=== PATIENT | female | born 1940 | race Caucasian/White ===

== ENCOUNTER 2017-04-01 12:06 | Emergency (ER) | payer OTHER ==
[2017-04-01 12:17] VITALS: RESP 18
[2017-04-01] MEDS ORDERED: RANITIDINE 50 MG/2 ML VIAL IVP ONE (13:07)
[2017-04-01] MEDS ORDERED: NS 500 ML IV ONE (13:07)
[2017-04-01] MEDS ORDERED: DEXAMETHASONE 10 MG/ML VIAL IVP ONE (13:08)
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
--- NOTE | 2017-04-01 13:21 | CPEKG ---
Heart Rate: 57 RR Interval: 1053 P-R Interval: 176 QRSD Interval: 88 QT Interval: 452 QTC Interval: 440 P [place]: 1 QRS [place]: 17 T Wave [place]: 17 EKG Severity - BORDERLINE ECG - EKG Impression: SINUS RHYTHM EKG Impression: BORDERLINE T ABNORMALITIES, ANTERIOR LEADS Electronically Signed By: David Boles 01-Apr-2017 13:44:31
[2017-04-01 13:29] LABS: % IMMATURE GRANULYOCYTES 0.2 % (0.0-1.1); ABSOLUTE IMMATURE GRANULOCYTES 0.01 10^3/uL (0.00-0.10); ADD DIFF? NO; ADD MORPH? NO; ADD SCAN? NO; ATYPICAL LYMPHOCYTE FLAG 40 (0-99); FRAGMENT RBC FLAG 0 (0-99); HEMATOCRIT 36.4 % (38.0-47.0); HEMOGLOBIN 12.4 g/dL (12.6-16.3); LEFT SHIFT FLG 0 (0-99); LIPEMIA HEMOLYSIS FLAG 90 (0-99); MEAN CELL HEMOGLOBIN CONCENTR. 34.1 g/dL (32.4-36.7); MEAN CELL VOLUME 99.7 fL (81.5-99.8); PLATELET CLUMPS FLAG 10 (0-99); PLATELET COUNT 102 10^3/uL (150-400); RED BLOOD CELL COUNT 3.65 10^6/uL (4.18-5.33); RED CELL DISTRIBUTION WIDTH 14.7 % (11.5-15.2)
[2017-04-01 14:02] LABS: ANION GAP 10 mEq/L (8-16); CALCIUM 9.1 mg/dL (8.5-10.4); CARBON DIOXIDE 24 mEq/l (22-31); CHLORIDE 100 mEq/L (97-110); CREATININE 0.8 mg/dL (0.6-1.0); GLOMERULAR FILTRATION RATE > 60; GLUCOSE 80 mg/dL (70-100); POTASSIUM 4.6 mEq/L (3.5-5.2); SODIUM 134 mEq/L (134-144)
[2017-04-01] MEDS ORDERED: IOPAMIDOL (ISOVUE-300) 100 ML BTL ONE (14:09)
[2017-04-01 14:53] VITALS: BP 150/88; PULSE 75; TEMP 98.2; O2SAT 91
== END 2017-04-01 16:02 | disposition home or self-care (01) ==
DX: R09.89 Other specified symptoms and signs involving the circulatory and respiratory systems (principal); E86.9 Volume depletion, unspecified
CPT/HCPCS: 70491; 93005; 96361; 96374; 99285; J1100; J1200; J2780; Q9967; 82947-QW

== ENCOUNTER 2017-05-30 18:11 | Inpatient (IN) | payer OTHER ==
[2017-05-30] MEDS ORDERED: fentaNYL 100 MCG/2 ML INJ ONE ×2 (18:44→19:57)
[2017-05-30] MEDS ORDERED: fentaNYL 100 MCG/2 ML INJ IVP ONE (18:50)
--- NOTE | 2017-05-30 18:55 | EDPHY ---
H & P Time Seen by Provider: 05/30/17 18:37 HPI/ROS: HPI Right ankle injury. 76-year-old female by private vehicle with her . This patient reports that she was wearing a pair of pole slippers which slipped on the top of her stairs. She fell with her feet going out in front of her landing on her right ankle awkwardly and pulling her left shoulder on the banister. She did not hit her head. She denies any loss of consciousness. No neck pain. She is not on anticoagulants or antiplatelet medications. She complains of primarily right ankle pain and to a lesser extent left shoulder pain. No other injury or complaint. ROS: Constitutional: No fever, no chills. No weakness. Eyes: No discharge. No changes in vision. ENT: No sore throat. No nasal congestion or rhinorrhea. Respiratory: No cough. No shortness of breath. Cardiac: No chest pain, no palpitations. Gastrointestinal: No abdominal pain, no vomiting, no diarrhea. Genitourinary: No hematuria. No dysuria or increased frequency with urination. Musculoskeletal: No back pain. No neck pain. As above. Skin: No rashes. Neurological: No headache. No focal weakness or altered sensation. Past medical history: GERD, osteoporosis, hypertension. Social history: Nonsmoker. No alcohol. Here with her . Physical Exam: General Appearance: Alert, no distress. This patient is responding to questions appropriately and in full sentences. This patient appears well- hydrated and well-nourished. Head: Normocephalic atraumatic. Face: Facial bones are stable on palpation. Eyes: Pupils equal and round and reactive to light, no pallor or injection. No lid erythema or edema. ENT, Mouth: Mucous membranes moist. Dentition is intact. No malocclusion of the jaw. No tongue lacerations or abrasions. Pharynx is clear. The bilateral nasal canals are clear. No septal hematoma. Respiratory: There are no retractions, lungs are clear to auscultation with good air movement bilaterally. Chest wall is stable to AP and lateral palpation. Cardiovascular: Regular rate and rhythm. No murmur. Gastrointestinal: Abdomen is soft and nontender, no masses, bowel sounds normal. Neurological: Motor sensory function is intact. Cranial nerves are normal. Cerebellar function intact. Skin: Warm and dry, no rashes. No lacerations, abrasions or contusions. Musculoskeletal: Neck is supple and nontender. The trachea is midline. No midline cervical, thoracic, lumbar or sacral tenderness on palpation. No flank tenderness on palpation. Right foot and ankle exam: Significant for a distal tibial/proximal ankle deformity ankle. The skin is intact. The right foot is neurovascularly intact. Left shoulder exam: The left shoulder ranges without any pain or impingement both passively and actively. No pain on flexion, extension, AB duction, AD duction in full range of motion of the left shoulder. No tenderness on palpation over the left AC joint. The axillary nerve distribution is intact left upper extremity is neurovascularly intact. Extremities are symmetrical, full range of motion except noted above. All joints in the bilateral upper and bilateral lower extremities range without pain or impingement except noted above. No tenderness on palpation of the long bones in the bilateral upper and bilateral lower extremities except noted above. Psychiatric: No agitation. No depression. Database: EKG: Imaging: Right ankle x-ray series: Significant for a by malleolar fracture dislocation of the ankle with about 50% medial displacement. Interpreted by me. Right ankle x-ray series post reduction: Good anatomical alignment of the by malleolar fracture dislocation as described above. Interpreted by me. Procedures: Procedure: Procedural sedation. Indication: Right ankle fracture dislocation reduction. A pre-sedation evaluation was completed on the patient just prior to the procedure. Patient is an appropriate candidate for procedural sedation with ASA class 1E. Mallampati class I. Patient assessed as 332. The risks of the sedation were discussed including but not limited to dysrhythmia, need for airway intervention or general anesthesia, disability, ; and verbal consent obtained. A timeout was observed and patient's identity confirmed. The patient was sedated with 40 mg of IV propofol and 50 mg of IV ketamine. The patient was monitored with continuous pulse oximetry, capnography, and classroom monitor. There were no complications and no significant hypoxemia. I remained at the bedside for the sedation. The total time I spent in the procedural sedation was 25 minutes. Procedure: Dislocation reduction right ankle fracture dislocation. The right ankle fracture dislocation was reduced in the usual fashion without complications. Post reduction the patient's neurovascular exam is normal. Post reduction x-ray demonstrates reduction of the joint to the anatomic position. The procedure was performed by myself. Emergency department course: IV was placed. Vital signs reviewed. She will be given IV fentanyl 125 mcg doses for pain control initially. X-rays obtained. 7:20 p.m., re-evaluated the patient. Right lower extremity is neurovascularly intact. Discussed results of x-rays and need for reduction of ankle fracture dislocation. Orthopedics, Dr. Zapata paged. 7:45 p.m., spoke with Dr. Zapata of Orthopedics. He agrees with emergency department reduction and splinting. He requested we admit the patient to the hospitalist service. He will see her as a consult and take her to the OR for operative fixation. 8:30 p.m., patient is awake and alert. Vital signs are normal. Her right foot is neurovascularly intact. She had an excellent experience during her procedural sedation. Plan for admission to the hospitalist service and then operative management by Dr. Zapata of the Orthopedic service discussed with her . All of their questions were answered. 8:45 p.m., spoke with Dr. Malin of the hospitalist service. He accepts the patient for admission. Her remaining emergency department course under my care has been uneventful. She was admitted in stable condition to the hospitalist service. Differential Diagnosis: The differential diagnosis on this patient includes but is not limited to right ankle fracture dislocation, left shoulder sprain. Left shoulder fracture, subluxation, dislocation, other significant traumatic injury the noted unlikely. This represents a partial list of diagnoses considered. These considerations are based on history, physical exam, past history, reassessment and diagnostic testing. Smoking Status: Never smoked Constitutional: Initial Vital Signs Temperature (C) 36.7 C 05/30/17 18:17 Heart Rate 67 05/30/17 18:17 Respiratory Rate 17 05/30/17 18:17 Blood Pressure 137/70 H 05/30/17 18:17 O2 Sat (%) 94 05/30/17 18:17 O2 Delivery Mode [Post Nasal Cannula Procedure 3rd] O2 Delivery Mode [Post Non-Rebreather Mask Procedure 2nd] O2 Delivery Mode [Post Non-Rebreather Mask Procedure 1st] O2 Delivery Mode [Procedural Non-Rebreather Mask 4th] O2 Delivery Mode [Procedural Non-Rebreather Mask 3rd] O2 Delivery Mode [Procedural Non-Rebreather Mask 2nd] O2 Delivery Mode [Procedural Non-Rebreather Mask 1st] O2 Delivery Mode Nasal Cannula O2 (L/minute) [Post Procedure 3 3rd] O2 (L/minute) [Post Procedure 15 2nd] O2 (L/minute) [Post Procedure 15 1st] O2 (L/minute) [Procedural 4th] 15 O2 (L/minute) [Procedural 3rd] 15 O2 (L/minute) [Procedural 2nd] 15 O2 (L/minute) [Procedural 1st] 15 O2 (L/minute) 3 Allergies/Adverse Reactions: cyclobenzaprine [Cyclobenzaprine] Allergy (Verified 05/30/17 18:15) Hives erythromycin base [Erythromycin Base] Allergy (Verified 05/30/17 18:15) Diarrhea/ GI DISTRESS Penicillins Allergy (Verified 05/30/17 18:15) HALLUCINATION Sulfa (Sulfonamide Antibiotics) Allergy (Verified 05/30/17 18:15) Hives ENVIRONMENTAL Allergy (Mild, Uncoded 06/19/12 14:45) STUFFY NOSE Home Medications: Medication Instructions Recorded Bystolic 5 mg (RX) mg PO DAILY 12/26/15 Escitalopram Oxalate 10 mg PO 12/26/15 Miralax 17 gm (OTC) 17 gm PO PRN PRN 12/26/15 Pantoprazole Sodium 40 mg PO DAILY 12/26/15 Prolia mg PO 16 Dexamethasone [Decadron 4 MG (RX)] 8 mg PO ONCE #2 tab 04/01/17 Myrbetriq 04/01/17 Enablex 05/30/17 Estrace 05/30/17 Fluticasone Furoate 05/30/17 Medical Decision Making - Diagnostics Imaging Results: Imaging Impressions Ankle X-Ray 05/30/17 18:39 Impression: Intraarticular comminuted fracture of the medial and lateral malleolus of the right ankle. Foot X-Ray 05/30/17 18:56 Impression: No fractures in the foot. - Data Points Medications Given: Discontinued Medications Fentanyl (Sublimaze) 100 mcg IVP EDNOW ONE Stop: 05/30/17 18:51 Last Admin: 05/30/17 18:50 Dose: 100 mcg Ketamine HCl (Ketamine) 50 mg IVP EDNOW ONE Stop: 05/30/17 20:01 Last Admin: 05/30/17 20:01 Dose: 50 mg Propofol (Diprivan) 40 mg IVP EDNOW ONE Stop: 05/30/17 20:01 Last Admin: 05/30/17 20:00 Dose: 40 mg Departure - Departure Disposition: [facility] Inpatient Acute Clinical Impression: Closed right ankle fracture, Mechanical fall, Sprain of left shoulder Referrals: Britta Robertson MD [Primary Care Provider] - As per Instructions
[2017-05-30] MEDS ORDERED: KETAMINE 100 MG/10 ML SYR ONE (19:25)
[2017-05-30] MEDS ORDERED: PROPOFOL/EMULSION 1,000 MG/100 ML BOTTLE IV ONE (19:25)
[2017-05-30] MEDS ORDERED: PROPOFOL 200 MG/20 ML VIAL ONE (19:27)
[2017-05-30] MEDS ORDERED: KETAMINE 100 MG/10 ML SYR IVP ONE (20:00)
[2017-05-30] MEDS ORDERED: PROPOFOL 200 MG/20 ML VIAL IVP ONE (20:00)
[2017-05-30 20:57] LABS: PLATELET COUNT 114 10^3/uL (150-400)
[2017-05-30] MEDS ORDERED: ONDANSETRON DISINTEGRATING 4 MG TAB PO PRN (21:12)
[2017-05-30] MEDS ORDERED: HYDROmorphONE/DILAUDID 1 MG/ML INJ IVP PRN (21:12)
[2017-05-30] MEDS ORDERED: ONDANSETRON 4 MG/2 ML VIAL IVP PRN (21:12)
--- NOTE | 2017-05-30 21:35 | CPEKG ---
Heart Rate: 72 RR Interval: 833 P-R Interval: 176 QRSD Interval: 88 QT Interval: 420 QTC Interval: 460 P [place]: 36 QRS [place]: 4 T Wave [place]: 14 EKG Severity - BORDERLINE ECG - EKG Impression: SINUS RHYTHM EKG Impression: BORDERLINE T ABNORMALITIES, ANTERIOR LEADS Electronically Signed By: Felipe Baca 01-Jun-2017 17:09:10
--- NOTE | 2017-05-30 21:35 | CPEKG ---
Heart Rate: 72 RR Interval: 833 P-R Interval: 176 QRSD Interval: 88 QT Interval: 420 QTC Interval: 460 P [place]: 36 QRS [place]: 4 T Wave [place]: 14 EKG Severity - BORDERLINE ECG - EKG Impression: SINUS RHYTHM EKG Impression: BORDERLINE T ABNORMALITIES, ANTERIOR LEADS Electronically Signed By: Felipe Baca 01-Jun-2017 17:09:10
--- NOTE | 2017-05-30 21:46 | GHP ---
[f rep st] HISTORY AND PHYSICAL DATE OF ADMISSION: 05/30/2017 CHIEF COMPLAINT: Right fall with right ankle fracture. HISTORY OF PRESENT ILLNESS: A 76-year-old female with a history of osteoporosis but no other major m edical problems. She apparently slipped on top of the stairs and landed on her ankle in an awkward p osition. She sustained an ankle fracture. She will be operated on tomorrow. There was no syncope. She does have some abdominal discomfort at times but does not have a diagnosis for that. REVIEW OF SYSTEMS: A 10-point review of systems other than stated was negative. PAST MEDICAL HISTORY: 1. Osteoporosis. 2. Hypertension. 3. GERD. SOCIAL HISTORY: No smoking. . FAMILY HISTORY: Reviewed noncontributory. PHYSICAL EXAM: VITAL SIGNS: Afebrile, blood pressure is 119/69, heart rate 77, oxygen saturation is 97% on 3 L. GENERAL: Patient is well developed, no apparent distress. HEENT: Nonicteric sclerae. Extraocular movements intact. Moist mucous membranes. NECK: Supple. No thyromegaly. LUNGS: Good effort. Clear to auscultation bilaterally. CARDIOVASCULAR: Regular rate and rhythm. A soft 2/6 systolic murmur heard best at the left lower sternal border. ABDOMEN: Positive bowel jacquie nds. Soft, nontender, nondistended. No hepatosplenomegaly. EXTREMITIES: No clubbing, cyanosis, or edema. Right leg is splinted. SKIN: Without rash. Dry, intact. NEUROLOGIC: Alert and oriented x3. Moving all 4 extremities equally. PSYCH: Normal mood and affect. LABS: CBC is essentially normal though some mild low platelets and mild anemia. Chemistries normal. ASSESSMENT: A 76-year-old female, presenting with a right ankle fracture. PLAN: 1. Right ankle fracture. Orthopedic Surgery will operate tomorrow. 2. We will get a preoperative EKG. 3. Hypertension, continue medications. /[id number]/MODL
[2017-05-31] MEDS: oxyCODONE IR 5 MG TAB PO PRN (03:56)
--- NOTE | 2017-05-31 08:35 | HOSPPROG ---
Hospitalist Progress Note Assessment/Plan: Patient is a 76 y/o female who slipped on her stairs and landed on her ankle in an awkward position. She sustained an ankle fx. Today is my 1st encounter with the patient. Chart reviewed. *ankle fx/right side To go to OR today with Dr. Zapata Start IV fluids *left shoulder pain Will get x-rays * thrombocytopenia Will follow * gait instability Last PT and OT to see her * DVT prophylaxis On hold due to the above * plan. Will be here for another midnight for surgery & further evaluation by physical therapy and occupational therapy Subjective: Natalie is not c/o much pain Objective: Vital Signs Temp Pulse Resp BP Pulse Ox 37.1 C 75 16 100/56 L 91 L 05/31/17 07:20 05/31/17 07:20 05/31/17 07:20 05/31/17 07:20 05/31/17 07:20 05/30/17 05/31/17 06/01/17 05:59 05:59 05:59 Intake Total 1000 Balance 1000 - Physical Exam Constitutional: no apparent distress, uncomfortable Eyes: PERRL Ears, Nose, Mouth, Throat: hearing normal Cardiovascular: regular rate and rhythym Respiratory: no respiratory distress Gastrointestinal: normoactive bowel sounds Skin: warm Musculoskeletal: muscular tenderness (l shoulder, r ankle) Neurologic: AAOx3 Psychiatric: interacting appropriately ICD10 Worksheet Patient Problems: Problems Problem Status Onset Closed right ankle fracture Acute Sprain of left shoulder Acute
[2017-05-31] MEDS ORDERED: NS 1,000 ML IV SCH (08:45)
--- NOTE | 2017-05-31 11:21 | ASMTCASEMG ---
Living Arrangements What is your living Answers: With Spouse arrangement? Who do you live with? Type Of Residence What kind of residence do Answers: House you live in? Discharge Plan Comments Coordination Status Comments Notes: CM spoke w/ Lachelle Kaplan NP regarding d/c POC. Pt is a 76 y/o female admitted w/ a closed left ankle fracture. PT and OT have been ordered. Needs are TBD at this time. CM to follow for d/c needs. Date Signed: 05/31/2017 11:20 AM Electronically Signed By:OLU Lewis
[2017-05-31] MEDS ORDERED: BUPIVACAINE 0.5% 30 ML SDV ONE (11:46)
[2017-05-31] MEDS ORDERED: BACITRACIN 50,000 UNITS/10 ML SYR IRR ONE (11:47)
[2017-05-31] MEDS ORDERED: POLYMYXIN B SULFATE 500,000 UNIT/10 ML SYR IRR ONE (11:47)
[2017-05-31] MEDS ORDERED: HYDROmorphone HCL/NS/PF 0.4 MG/2 ML SYR IVP PRN (11:57)
[2017-05-31] MEDS ORDERED: POLYETHYLENE GLYCOL 3350 17 GM PKT PO PRN (12:03)
[2017-05-31] MEDS ORDERED: ceFAZolin 2 GM/DEXTROSE 100 ML IV ONE (12:26)
[2017-05-31] MEDS ORDERED: ceFAZolin 2 GM/SWFI 20 ML SYR IVP ONE (12:38)
[2017-05-31] MEDS ORDERED: clonIDINE 1 MG/10 ML VIAL EP ONE (12:43)
[2017-05-31] MEDS ORDERED: fentaNYL 100 MCG/2 ML INJ ONE (12:43)
[2017-05-31] MEDS ORDERED: PROPOFOL 200 MG/20 ML VIAL ONE (12:43)
[2017-05-31] MEDS ORDERED: SUCCINYLCHOLINE CHLORIDE*ANESTHESIA ONLY*200 MG/10 ML SYR IVP ONE (12:48)
[2017-05-31] MEDS ORDERED: PROPOFOL/EMULSION 500 MG/50 ML BOTTLE IV ONE (12:48)
[2017-05-31] MEDS ORDERED: ceFAZolin 2 GM/SWFI 2 GM/20 ML SYR IVP ONE (13:00)
[2017-05-31] MEDS ORDERED: NALOXONE HCL 0.4 MG/ML INJ IVP PRN (13:43)
[2017-05-31] MEDS ORDERED: fentaNYL 100 MCG/2 ML INJ IVP PRN (13:43)
[2017-05-31] MEDS ORDERED: ONDANSETRON 4 MG/2 ML VIAL IVP PRN ×2 (13:43→14:53)
[2017-05-31] MEDS ORDERED: LR 500 ML IV PRN (13:43)
--- NOTE | 2017-05-31 13:43 | PDANEPAE ---
ANE History of Present Illness Patient presents for ORIF Right Ankle ANE Past Medical History - Cardiovascular History Hx Hypertension: Yes Hx Arrhythmias: Yes Hx Chest Pain: No Hx Coronary Artery / Peripheral Vascular Disease: No Hx CHF / Valvular Disease: No Hx Palpitations: Yes - Pulmonary History Hx COPD: No Hx Asthma/Reactive Airway Disease: No Hx Recent Upper Respiratory Infection: No Hx Oxygen in Use at Home: No Hx Sleep Apnea: No Sleep Apnea Screening Result - Last Documented: Negative - Neurologic History Hx Cerebrovascular Accident: No Hx Seizures: No Hx Dementia: No - Endocrine History Hx Diabetes: No - Renal History Hx Renal Disorders: Yes Renal History Comment: HX OF RENAL CYSTS - Liver History Hx Hepatic Disorders: No - Neurological & Psychiatric Hx Hx Neurological and Psychiatric Disorders: Yes Neurological / Psychiatric History Comment: DEPRESSION - Cancer History Hx Cancer: Yes Cancer History Comment: SKIN CANCER - Congenital Disorder History Hx Congenital Disorders: No - GI History Hx Gastrointestinal Disorders: Yes Gastrointestinal History Comment: GERD - Other Health History Other Health History: ANEMIA - Chronic Pain History Chronic Pain: No - Surgical History Prior Surgeries: KYPHOPLASTY 12/03, CATARACT SURGERY 06/05, D&C, ROTATOR CUFF REPAIR, MOH'S SURGERY ANE Review of Systems Review of Systems: ANE Patient History - Allergies Allergies/Adverse Reactions: cyclobenzaprine [Cyclobenzaprine] Allergy (Verified 05/30/17 18:15) Hives erythromycin base [Erythromycin Base] Allergy (Verified 05/30/17 18:15) Diarrhea/ GI DISTRESS Penicillins Allergy (Verified 05/30/17 18:15) HALLUCINATION Sulfa (Sulfonamide Antibiotics) Allergy (Verified 05/30/17 18:15) Hives ENVIRONMENTAL Allergy (Mild, Uncoded 06/19/12 14:45) STUFFY NOSE - Home Medications Home medications: home medication list seen and reviewed Home Medications: Denosumab [Prolia] 60 mg SQ Q90D 12/26/15 [Last Taken Unknown] Escitalopram Oxalate [Lexapro] 10 mg PO DAILY 12/26/15 [Last Taken 05/30/17] Nebivolol HCl [Bystolic 5 mg (*)] 5 mg PO DAILY 12/26/15 [Last Taken 05/30/17] Pantoprazole Sodium [Protonix 40mg (*)] 40 mg PO DAILY 12/26/15 [Last Taken 01/08] Polyethylene Glycol 3350 [Miralax 17 gm (*)] 17 gm PO DAILY PRN 12/26/15 [Last Taken 05/30/17] Darifenacin Hydrobromide [Enablex] 7.5 mg PO DAILY 05/30/17 [Last Taken Unknown] Estradiol [Estrace Vaginal (*)] 1 angie VG Q3D 05/30/17 [Last Taken Unknown] Aspirin [Aspirin 81mg (*)] 81 mg PO DAILY 05/31/17 [Last Taken Unknown] Cholecalciferol Vit D3 [Vitamin D3 (*)] 1,000 units PO DAILY 05/31/17 [Last Taken Unknown] - NPO status NPO Status: no food or drink >8 hours NPO Since - Liquids (Date): 05/30/17 NPO Since - Liquids (Time): 23:59 NPO Since - Solids (Date): 05/30/17 NPO Since - Solids (Time): 18:00 - Anes Hx Anes Hx: no prior problems - Smoking Hx Smoking Status: Never smoked - Family Anes Hx Family Hx Anesthesia Complications: NONE ANE Labs/Vital Signs - Labs Result Diagrams: 05/30/17 18:45 05/30/17 18:45 - Vital Signs Blood Pressure: 116/79 Heart Rate: 65 Respiratory Rate: 14 O2 Sat (%): 95 Height: 162.56 cm Weight: 74.843 kg ANE Physical Exam - Airway Neck exam: FROM Mallampati Score: Class 2 Mouth exam: normal dental/mouth exam - Cardiovascular Cardiovascular: pulses symmetric bilaterally - ASA Status ASA Status: II ANE Anesthesia Plan Anesthesia Plan: GA w LMA Regional Anesthesia: single shot NB
[2017-05-31] MEDS ORDERED: ONDANSETRON 4 MG/2 ML VIAL ONE (13:49)
[2017-05-31] MEDS ORDERED: DEXAMETHASONE 4 MG/ML VIAL ONE (13:49)
--- NOTE | 2017-05-31 14:17 | POSTANESTH ---
Post Anesthetic Evaluation Cardiovascular Status: Normal, Stable Respiratory Status: Normal, Stable Level of Consciousness/Mental Status: Can Participate in Eval Pain Control: Adequate, Prn Tx Ordered Nausea/Vomiting Control: Adequate, Prn Tx Ordered Complications Possibly Related to Anesthesia: None Noted
--- NOTE | 2017-05-31 14:44 | GOP ---
[f rep st] OPERATIVE REPORT DATE OF OPERATION: SURGEON: Adams Zapata MD PREOPERATIVE DIAGNOSIS: Unstable bimalleolar ankle fracture, right ankle. POSTOPERATIVE DIAGNOSIS: Unstable bimalleolar ankle fracture, right ankle. PROCEDURE PERFORMED: 1. Open reduction, internal fixation of bimalleolar ankle fracture. 2. Intraoperative fluoroscopy, interpreted by surgeon. FINDINGS: ESTIMATED BLOOD LOSS: Minimal. INDICATIONS: A 76-year-old female who had a slip and fall, mechanical fall at home. She was seen in the ER. Had a fracture dislocation of the right ankle. Reduced by the emergency room personnel. S he presents for operative fixation for unstable ankle fracture. DESCRIPTION OF PROCEDURE: The patient identified in the preoperative holding area. Her was available for questions and answers. The right lower extremity was identified. She had mobile toes. The patient was brought into the operating room. Anesthesia performed a saphenous and popliteal nerv e block. Monitored sedation. A right thigh tourniquet was placed. Right lower extremity prepped an d draped in a sterile fashion. Surgical time-out was performed. Esmarch exsanguination. A lateral- based incision. Fracture was identified. Pointed reduction clamps. Two lag screws were placed acro ss for compression and an 8-hole 1/3 tubular plate was placed. On the medial side, we found a transv erse medial malleolar fracture. Placed 2 guide pins, and used cannulated screws across. Final fluor oscopic films showed a nice reduction on AP, lateral, and mortise view. The wounds were copiously wa shed out with 500 cc of warm normal saline. 3-0 Monocryl for subcutaneous tissue closure and carlos for skin closure. 30 cc of 0.5% Marcaine was used, distributed evenly among the incisions. A well- padded AO splint was placed. COMPLICATIONS: None. TOTAL TOURNIQUET TIME: 40 minutes. DISPOSITION: Awake, to the PACU in stable condition. /[id number]/MODL
[2017-05-31] MEDS ORDERED: HYDROCODONE/APAP 5/325 TAB PO PRN (14:55)
[2017-06-01 04:52] LABS: PLATELET COUNT 83 10^3/uL (150-400)
[2017-06-01] MEDS: PANTOPRAZOLE SODIUM 40 MG TAB PO SCH (08:08)
[2017-06-01] MEDS: CHOLECALCIFEROL VIT D3 1,000 UNITS TAB PO SCH (08:08)
[2017-06-01] MEDS ORDERED: ESCITALOPRAM OXALATE 10 MG TAB PO SCH (09:00)
[2017-06-01] MEDS ORDERED: NEBIVOLOL HCL 5 MG TAB PO SCH (09:00)
[2017-06-01] MEDS ORDERED: METHOCARBAMOL 750 MG TAB PO PRN (10:05)
[2017-06-01] MEDS ORDERED: ESCITALOPRAM OXALATE 10 MG TAB PO ONE (11:00)
--- NOTE | 2017-06-01 12:25 | HOSPPROG ---
Hospitalist Progress Note Assessment/Plan: Patient is a 76 y/o female who slipped on her stairs and landed on her ankle in an awkward position. She sustained an ankle fx. Today is my 1st encounter with the patient. Chart reviewed. D/W RN. *ankle fx/right side POD #1 Dr Zapata cont PT/OT *left shoulder pain x-rays stable likely muscle issue will order robaxin * thrombocytopenia lower today check again in am * gait instability PT and OT to see her * DVT prophylaxis On hold due to the above * plan. Will likely need SNF continue PT/OT eval D/W CM Subjective: Feeling better. No pain in leg. Some pain in shoulders. Objective: Vital Signs Temp Pulse Resp BP Pulse Ox 36.3 C 64 14 102/57 L 94 06/01/17 11:42 06/01/17 11:42 06/01/17 11:42 06/01/17 11:42 06/01/17 11:42 Laboratory Results 06/01/17 04:18 06/01/17 04:18 05/31/17 06/01/17 06/02/17 05:59 05:59 05:59 Intake Total 1000 518 Balance 1000 518 - Physical Exam Constitutional: no apparent distress, appears nourished, not in pain Eyes: PERRL, anicteric sclera, EOMI Ears, Nose, Mouth, Throat: moist mucous membranes, hearing normal, ears appear normal Cardiovascular: regular rate and rhythym, No JVD, No edema Respiratory: no respiratory distress, no rales or rhonchi, reduced air movement Gastrointestinal: normoactive bowel sounds, No tenderness, No ascites Skin: warm, normal color, No erythema Musculoskeletal: no joint effusions, pain with ROM, generalized weakness Neurologic: AAOx3 Psychiatric: interacting appropriately, not anxious, not encephalopathic ICD10 Worksheet Patient Problems: Problems Problem Status Onset Closed right ankle fracture Acute Sprain of left shoulder Acute
--- NOTE | 2017-06-01 14:29 | ASMTCMCOM ---
CM Note CM Note Notes: CM spoke w/ Yecenia Vizcarra LENS COATER regarding dispo planning. CM met w/ pt to discuss d/c POC. OT and PT are recommending SNF. Pt would like her first SNF choice to be [facility] and second choice to be [facility]. CM spoke w/ Arnold at [facility] and currently they do not have any beds. CM completed PASRR and sent over referrals to facilities. Pt has been accepted to [facility] pending onsite from [facility]. CM to follow. Date Signed: 06/01/2017 02:29 PM Electronically Signed By:OLU Lewis
--- NOTE | 2017-06-01 14:29 | ASMTCMCOM ---
CM Note CM Note Notes: CM spoke w/ Yecenia Vizcarra PRINCIPAL ASSOCIATE regarding dispo planning. CM met w/ pt to discuss d/c POC. OT and PT are recommending SNF. Pt would like her first SNF choice to be [facility] and second choice to be [facility]. CM spoke w/ Arnold at [facility] and currently they do not have any beds. CM completed PASRR and sent over referrals to facilities. Pt has been accepted to [facility] pending onsite from [facility]. CM to follow. Date Signed: 06/01/2017 02:29 PM Electronically Signed By:OLU Lewis
--- NOTE | 2017-06-01 14:29 | ASMTCMCOM ---
CM Note CM Note Notes: CM spoke w/ Yecenia Vizcarra SINK CUTTER regarding dispo planning. CM met w/ pt to discuss d/c POC. OT and PT are recommending SNF. Pt would like her first SNF choice to be [facility] and second choice to be [facility]. CM spoke w/ Arnold at [facility] and currently they do not have any beds. CM completed PASRR and sent over referrals to facilities. Pt has been accepted to [facility] pending onsite from [facility]. CM to follow. Date Signed: 06/01/2017 02:29 PM Electronically Signed By:OLU Lewis
--- NOTE | 2017-06-01 14:40 | SOAPPROG ---
MARICRUZ Progress Note Assessment/Plan: assessment/plan: 76-year-old female, postop day 1 status post right ankle open reduction internal fixation by dr. zapata on 05/31/17 -RLE: toe-touch weightbearing, with walker, patient should stay in surgical splint, until seen a postop visit, at which time she'll placed in a fracture boot. Patient should be placed on a 2 week prophylactic dose of aspirin 325 mg once a day Patient should follow up 7 days after surgery at the [facility] for orthopedics with Dr. Zapata or myself pain management: Tylenol 1000 mg standing every 8 hours, alternating with ibuprofen 800 mg every 8 hours, using oxycodone 5 mg 1 tablet by mouth every 4 hours hours as needed for breakthroh pain Subjective: there is a pleasant 76-year-old emale, postop day 1 status post right ankle open reduction internal fixation by . She reports she is doing well, reports she got great night sleep, denies any issues, reports pain is well-controlled, denies any falls or injuries. Objective: RLE: splint in place, dressings clean/dry/intact, sensation returning starting in the pinky toe, block still intact in the great toe through fourth toe, however patient is able to range/wiggle her toes. They appear warm dry and pink , Vital Signs Temp Pulse Resp BP Pulse Ox 36.3 C 64 14 102/57 L 94 06/01/17 11:42 06/01/17 11:42 06/01/17 11:42 06/01/17 11:42 06/01/17 11:42 Laboratory Results 06/01/17 04:18 06/01/17 04:18 05/31/17 06/01/17 06/02/17 05:59 05:59 05:59 Intake Total 1000 518 Balance 1000 518 ICD10 Worksheet Patient Problems: Problems Problem Status Onset Closed right ankle fracture Acute Sprain of left shoulder Acute
[2017-06-01] MEDS: oxyCODONE IR 5 MG TAB PO PRN ×2 (15:34→19:54)
[2017-06-01] MEDS: ACETAMINOPHEN 325 MG TAB PO PRN (15:34)
[2017-06-02] MEDS: oxyCODONE IR 5 MG TAB PO PRN (00:08)
[2017-06-02] MEDS: ACETAMINOPHEN 325 MG TAB PO PRN ×2 (00:09→08:54)
[2017-06-02] MEDS: PANTOPRAZOLE SODIUM 40 MG TAB PO SCH (08:26)
[2017-06-02] MEDS: CHOLECALCIFEROL VIT D3 1,000 UNITS TAB PO SCH (08:26)
[2017-06-02] MEDS ORDERED: ESCITALOPRAM OXALATE 10 MG TAB PO SCH (09:00)
[2017-06-02] MEDS ORDERED: MYRBETRIQ 50 MG PO SCH (09:00)
[2017-06-02 12:02] VITALS: RESP 16
--- NOTE | 2017-06-02 12:54 | PDIAF ---
- Diagnosis Diagnosis: ankle fx Code Status: Full Code - Medication Management Discharge Medications: Medications to Continue on Transfer Denosumab [Prolia] 60 mg SQ Q90D 12/26/15 [Last Taken Unknown] Escitalopram Oxalate [Lexapro 10 MG] 20 mg PO DAILY 12/26/15 [Last Taken ] Pantoprazole Sodium [Protonix 40mg (*)] 40 mg PO DAILY 12/26/15 [Last Taken 01/08] Polyethylene Glycol 3350 [Miralax 17 gm (*)] 17 gm PO DAILY PRN 12/26/15 [Last Taken 05/30/17] Estradiol [Estrace Vaginal (*)] 1 angie VG Q3D 05/30/17 [Last Taken Unknown] Aspirin [Aspirin 81mg (*)] 81 mg PO DAILY 05/31/17 [Last Taken Unknown] Cholecalciferol Vit D3 [Vitamin D3 (*)] 1,000 units PO DAILY 05/31/17 [Last Taken Unknown] Myrbetriq 50mg 50 mg PO DAILY 06/01/17 [Last Taken 05/30/17] Acetaminophen [Tylenol 325mg (*)] 650 mg PO Q4HRS PRN tab 06/02/17 [Last Taken Unknown] Hydrocodone/APAP 5/325 [[place] 5/325 (*)] 1 tab PO Q4HRS PRN tab 06/02/17 [Last Taken Unknown] Methocarbamol [Robaxin 750 mg (*)] 750 mg PO TID PRN tab 06/02/17 [Last Taken Unknown] oxyCODONE IR [Oxycodone Ir (*)] 5 - 10 mg PO Q3HRS PRN tab 06/02/17 [Last Taken Unknown] Discharge Medications: Refer to the Discharge Home Medication list for PRN reason. PICC Care - Routine: N/A - Orders Services needed: Registered Nurse, Physical Therapy, Occupational Therapy Diet Recommendation: no restrictions on diet - Follow Up Care Current Providers and Referrals: Britta Robertson MD [Primary Care Provider] - As per Instructions
--- NOTE | 2017-06-02 14:50 | ASMTCMCOM ---
CM Note CM Note Notes: D/w BUCCARO, final orders faxed. [facility] at notified, pick by transport at 3:30. RN to call report. Date Signed: 06/02/2017 02:49 PM Electronically Signed By:Karolina Lai RN
--- NOTE | 2017-06-02 14:50 | ASMTCMCOM ---
CM Note CM Note Notes: D/w HEAVY CLEANER, final orders faxed. [facility] at notified, pick by transport at 3:30. RN to call report. Date Signed: 06/02/2017 02:49 PM Electronically Signed By:Karolina Lai RN
--- NOTE | 2017-06-02 14:50 | ASMTCMCOM ---
CM Note CM Note Notes: D/w GAMING HOST, final orders faxed. [facility] at notified, pick by transport at 3:30. RN to call report. Date Signed: 06/02/2017 02:49 PM Electronically Signed By:Karolina Lai RN
[2017-06-02 15:16] VITALS: BP 103/59; PULSE 74; TEMP 98.1
--- NOTE | 2017-06-02 15:41 | GDS ---
[f rep st] DISCHARGE SUMMARY DISCHARGE DIAGNOSES: 1. Acute right-sided ankle fracture. 2. Left shoulder pain. 3. Thrombocytopenia. 4. Gait instability. CONSULTATIONS: Dr. Zapata of Orthopedics. STUDIES AND PROCEDURES DONE: 1. Multiple ankle x-rays, a foot x-ray. 2. Shoulder x-ray. SURGICAL INTERVENTION: For a right ankle fracture. PHYSICAL EXAMINATION: GENERAL: The patient is alert. VITAL SIGNS: Afebrile 36.8, pulse is 66, res piratory rate 16, blood pressure is 119/62. She is saturating greater than 90% on room air. I have seen and evaluated the patient on the day of discharge. HOSPITAL COURSE: The patient is a 76-year-old female, who suffered a mechanical fall after slipping. She was evaluated and diagnosed with: 1. A right ankle fracture. During this hospitalization, she received a consultation from Dr. Zapata. Surgical intervention was performed. She is tolerating this well. She is toe-touch weightbearing a nd will require continued therapy in the outpatient setting. 2. Left shoulder pain. This is likely secondary to the patient's mechanical fall. Muscle relaxers have been initiated. She will require physical therapy to rehabilitate this shoulder. There was no identification of any fracture or other acute process. 3. Thrombocytopenia. This does appear to be stable. DISPOSITION: Patient will discharge to long term facility for further rehabilitation and manag ement. PENDING STUDIES: There are no pending studies. DISCHARGE MEDICATIONS: Please refer to EMR form. The patient's Bystolic has been discontinued durin g this hospitalization secondary to her low blood pressure, and it may need to be re-initiated in the outpatient setting. FOLLOW UP: Follow up will be with Dr. Zapata, as well as the patient's primary care physician, Dr. Fely govea. I spent greater than 35 minutes in the care, coordination, and management of the patient's dispositio n. /[id number]/MODL
--- NOTE | 2017-06-02 16:02 | ASDISCHSUM ---
Discharge Information Plan Status:SNF Medically Cleared to Leave: Discharge Date:06/02/2017 03:50 PM CM D/C Disposition:Intermediate Facility ADT D/C Disposition:Intermediate Facility Projected Discharge Date:06/02/2017 11:00 AM Transportation at D/C:Wheelchair Van Discharge Delay Reason: Follow-Up Date:06/02/2017 11:00 AM Discharge Slot: Final Diagnosis: Placement Information Referral Type:*Group Home/SNF Referral ID:[id number] Provider Name:[facility] Address 1:[address] Address 2: City:[place] Selection Factors: State:[place] Patient Contact Information Contact Name:AUBREY Relationship: Address[address] [address] Work Phone: City:[place] Alternate Phone: State/Zip Code:[place] [address] Email: Financial Information Financial Class:Medicare Advantage Plans Primary Plan Desc:[facility] Personally Primary Plan Number:[id number] Secondary Plan Desc: Secondary Plan Number: Assessment Information [facility] Initial CM Assessment Living Arrangements What is your living Answers: With Spouse arrangement? Who do you live with? Type Of Residence What kind of residence do Answers: House you live in? Discharge Plan Comments Coordination Status Comments Notes: CM spoke w/ Lachelle Kaplan NP regarding d/c POC. Pt is a 76 y/o female admitted w/ a closed left ankle fracture. PT and OT have been ordered. Needs are TBD at this time. CM to follow for d/c needs. Date Signed: 05/31/2017 11:20 AM Electronically Signed By:OLU Lewis [facility] CM Progress Note CM Note CM Note Notes: CM spoke w/ Yecenia Vizcarra NP regarding dispo planning. CM met w/ pt to discuss d/c POC. OT and PT are recommending SNF. Pt would like her first SNF choice to be [facility] and second choice to be [facility]. CM spoke w/ Arnold at [facility] and currently they do not have any beds. CM completed PASRR and sent over referrals to facilities. Pt has been accepted to [facility] pending onsite from [facility]. CM to follow. Date Signed: 06/01/2017 02:29 PM Electronically Signed By:OLU Lewis [facility] CM Progress Note CM Note CM Note Notes: D/w TEACHER OF THE DEAF/HARD OF HEARING, final orders faxed. [facility] at notified, pick by wc transport at 3:30. RN to call report. Date Signed: 06/02/2017 02:49 PM Electronically Signed By:Karolina Lai RN Intervention Information Intervention Type:*IM-Signed Date of Service:06/02/2017 01:42 PM Patient Type:Inpatient Staff Member:Anel Desouza Hours: Discipline: Severity: Comment:
--- NOTE | 2017-06-02 16:02 | ASDISCHSUM ---
Discharge Information Plan Status:SNF Medically Cleared to Leave: Discharge Date:06/02/2017 03:50 PM CM D/C Disposition:Long-Term Facility ADT D/C Disposition:Long-Term Facility Projected Discharge Date:06/02/2017 11:00 AM Transportation at D/C:Wheelchair Van Discharge Delay Reason: Follow-Up Date:06/02/2017 11:00 AM Discharge Slot: Final Diagnosis: Placement Information Referral Type:*Halfway/SNF Referral ID:[id number] Provider Name:[facility] Address 1:[address] Address 2: City:[place] Selection Factors: State:[place] Patient Contact Information Contact Name:AUBREY Relationship: Address:[address] [address] Work Phone: City:[place] Alternate Phone: State/Zip Code:[place] [address] Email: Financial Information Financial Class:Medicare Advantage Plans Primary Plan Desc:[facility] [employer] Primary Plan Number:[id number] Secondary Plan Desc: Secondary Plan Number: Assessment Information [facility] Initial CM Assessment Living Arrangements What is your living Answers: With Spouse arrangement? Who do you live with? Type Of Residence What kind of residence do Answers: House you live in? Discharge Plan Comments Coordination Status Comments Notes: CM spoke w/ Lachelle Kaplan NP regarding d/c POC. Pt is a 76 y/o female admitted w/ a closed left ankle fracture. PT and OT have been ordered. Needs are TBD at this time. CM to follow for d/c needs. Date Signed: 05/31/2017 11:20 AM Electronically Signed By:OLU Lewis [facility] CM Progress Note CM Note CM Note Notes: CM spoke w/ Yecenia Vizcarra NP regarding dispo planning. CM met w/ pt to discuss d/c POC. OT and PT are recommending SNF. Pt would like her first SNF choice to be [facility] and second choice to be [facility]. CM spoke w/ Arnold at [facility] and currently they do not have any beds. CM completed PASRR and sent over referrals to facilities. Pt has been accepted to [facility] pending onsite from [facility]. CM to follow. Date Signed: 06/01/2017 02:29 PM Electronically Signed By:OLU Lewis [facility] CM Progress Note CM Note CM Note Notes: D/w COMPUTER SYSTEMS ADMINISTRATOR, final orders faxed. [facility] at notified, pick by wc transport at 3:30. RN to call report. Date Signed: 06/02/2017 02:49 PM Electronically Signed By:Karolina Lai RN Intervention Information Intervention Type:*IM-Signed Date of Service:06/02/2017 01:42 PM Patient Type:Inpatient Staff Member:Anel Desouza Hours: Discipline: Severity: Comment:
--- NOTE | 2017-06-02 16:02 | ASDISCHSUM ---
Discharge Information Plan Status:SNF Medically Cleared to Leave: Discharge Date:06/02/2017 03:50 PM CM D/C Disposition:Care Home Facility ADT D/C Disposition:Care Home Facility Projected Discharge Date:06/02/2017 11:00 AM Transportation at D/C:Wheelchair Van Discharge Delay Reason: Follow-Up Date:06/02/2017 11:00 AM Discharge Slot: Final Diagnosis: Placement Information Referral Type:*Skilled Nursing/SNF Referral ID:[id number] Provider Name:[facility] Address 1:[address] Address 2: City:[place] Selection Factors: State:[place] Patient Contact Information Contact Name:AUBREY Relationship: Address:[address] [address] Work Phone: City:[place] Alternate Phone: State/Zip Code:[place] [address] Email: Financial Information Financial Class:Medicare Advantage Plans Primary Plan Desc:[facility] [employer] Primary Plan Number:[id number] Secondary Plan Desc: Secondary Plan Number: Assessment Information [facility] Initial CM Assessment Living Arrangements What is your living Answers: With Spouse arrangement? Who do you live with? Type Of Residence What kind of residence do Answers: House you live in? Discharge Plan Comments Coordination Status Comments Notes: CM spoke w/ Lachelle Kaplan NP regarding d/c POC. Pt is a 76 y/o female admitted w/ a closed left ankle fracture. PT and OT have been ordered. Needs are TBD at this time. CM to follow for d/c needs. Date Signed: 05/31/2017 11:20 AM Electronically Signed By:OLU Lewis [facility] CM Progress Note CM Note CM Note Notes: CM spoke w/ Yecenia Vizcarra NP regarding dispo planning. CM met w/ pt to discuss d/c POC. OT and PT are recommending SNF. Pt would like her first SNF choice to be [facility] and second choice to be [facility]. CM spoke w/ Arnold at [facility] and currently they do not have any beds. CM completed PASRR and sent over referrals to facilities. Pt has been accepted to [facility] pending onsite from [facility]. CM to follow. Date Signed: 06/01/2017 02:29 PM Electronically Signed By:OLU Lewis [facility] CM Progress Note CM Note CM Note Notes: D/w DIRECTOR COUNCIL ON AGING, final orders faxed. [facility] at notified, pick by wc transport at 3:30. RN to call report. Date Signed: 06/02/2017 02:49 PM Electronically Signed By:Karolina Lai RN Intervention Information Intervention Type:*IM-Signed Date of Service:06/02/2017 01:42 PM Patient Type:Inpatient Staff Member:Anel Desouza Hours: Discipline: Severity: Comment:
[2017-06-02 17:11] VITALS: O2SAT 92
[2017-06-03] MEDS ORDERED: ESTRADIOL 42.5 GM CRTUBE VG SCH ×2 (08:00)
== END 2017-06-02 15:50 | DRG 494 ==
LOC: F3E 21:55
PROVIDERS: ADMIT Internal Medicine; ATTEND Internal Medicine
PROC: 0SSF04Z Reposition Right Ankle Joint with Internal Fixation Device, Open Approach (ICD-10-PCS; principal; 2017-05-30)
DX: S82.841A Displaced bimalleolar fracture of right lower leg, initial encounter for closed fracture (principal); M25.512 Pain in left shoulder; W10.9XXA Fall (on) (from) unspecified stairs and steps, initial encounter; Y92.009 Unspecified place in unspecified non-institutional (private) residence as the place of occurrence of the external cause; M81.0 Age-related osteoporosis without current pathological fracture; D69.6 Thrombocytopenia, unspecified; I10 Essential (primary) hypertension; K21.9 Gastro-esophageal reflux disease without esophagitis; R26.9 Unspecified abnormalities of gait and mobility
CPT/HCPCS: 97162-GP; 97165-GO; 97530-GP; 97535-GO; C1713; G8978-GP-CM; G8979-GP-CJ; G8987-GO-CK; G8988-GO-CI; J0330; J0690; J0735; J1100; J2405; J2704; J3010

== ENCOUNTER → 2017-06-30 | Outpatient (CLI) | payer OTHER | LOC: FIMAGING 11:49 | PROVIDERS: ATTEND Family Medicine | DX: M54.5 Low back pain (principal); M81.0 Age-related osteoporosis without current pathological fracture; S32.009A Unspecified fracture of unspecified lumbar vertebra, initial encounter for closed fracture ==

== ENCOUNTER 2017-07-06 15:16 | Inpatient (IN) | payer OTHER ==
--- NOTE | 2017-07-06 16:14 | EDPHY ---
H & P Stated Complaint: Intractable lumbar pain. To have a kyphoplasty in AM ( ). Time Seen by Provider: 07/06/17 15:58 HPI/ROS: CHIEF COMPLAINT: Intractable pain from L2 compression fracture HISTORY OF PRESENT ILLNESS: The patient presents to the ED with intractable pain from an L2 compression fracture. This was diagnosed via MRI scan today. The patient is scheduled to undergo kyphoplasty tomorrow. The patient reports that she is unable to be at home this evening secondary to uncontrolled pain. She was referred to the emergency department for admission by interventional radiology. The patient denies any acute numbness or weakness. The patient has taking [place] at home several times this week and only developed dizziness with without significant relief of her pain. She reports that she is unable to safely transferred to the bathroom. She has an elderly who cannot help her transfer either. She is requesting to be admitted to the hospital and anticipation of her procedure which is scheduled tomorrow with Dr. Gavin. REVIEW OF SYSTEMS: A comprehensive 10 point review of systems is otherwise negative aside from elements mentioned in the history of present illness. Source: Patient Exam Limitations: No limitations - Personal History Current Tetanus Diphtheria and Acellular Pertussis (TDAP): Yes - Medical/Surgical History Hx Asthma: No Hx Chronic Respiratory Disease: No Hx Diabetes: No Hx Cardiac Disease: No Hx Renal Disease: No Hx Cirrhosis: No Hx Alcoholism: No Hx HIV/AIDS: No Hx Splenectomy or Spleen Trauma: No Other PMH: GERD, DEPRESSION, OSTEOPEROSIS,. HTN, RIGHT ROTATOR CUFF REPAIR, RIGHT ANKLE DISLOCATION/FRACTURE, KYPHOPLASTY - Social History Smoking Status: Never smoked - Physical Exam Exam: General Appearance: Elderly female, no acute distress Eyes: Pupils equal and round no pallor or injection ENT, Mouth: Mucous membranes moist Respiratory: There are no retractions, lungs are clear to auscultation Cardiovascular: Regular rate and rhythm Gastrointestinal: Abdomen is soft and nontender, no masses, bowel sounds normal Neurological: A&O, normal motor function, normal sensory exam, normal cranial nerves Skin: Warm and dry, no rashes Musculoskeletal: Kyphosis, tenderness to palpation in the upper lumbar spine Extremities: symmetrical, full range of motion Psychiatric: Patient is oriented X 3, there is no agitation Constitutional: Initial Vital Signs Temperature (C) 36.7 C 07/06/17 15:17 Heart Rate 65 07/06/17 15:17 Respiratory Rate 16 07/06/17 15:17 Blood Pressure 143/64 H 07/06/17 15:17 O2 Sat (%) 96 07/06/17 15:17 O2 Delivery Mode Room Air Allergies/Adverse Reactions: cyclobenzaprine [Cyclobenzaprine] Allergy (Verified 05/30/17 18:15) Hives erythromycin base [Erythromycin Base] Allergy (Verified 05/30/17 18:15) Diarrhea/ GI DISTRESS Penicillins Allergy (Verified 05/30/17 18:15) HALLUCINATION Sulfa (Sulfonamide Antibiotics) Allergy (Verified 05/30/17 18:15) Hives ENVIRONMENTAL Allergy (Mild, Uncoded 06/19/12 14:45) STUFFY NOSE Home Medications: Medication Instructions Recorded Denosumab [Prolia] 60 mg SQ Q90D 12/26/15 Escitalopram Oxalate [Lexapro 10 20 mg PO HS 12/26/15 MG] Pantoprazole Sodium [Protonix 40mg 40 mg PO DAILY 12/26/15 (*)] Polyethylene Glycol 3350 [Miralax 17 gm PO DAILY PRN 12/26/15 17 gm (*)] Estradiol [Estrace Vaginal (*)] 1 angie VG Q3D 05/30/17 Aspirin [Aspirin 81mg (*)] 81 mg PO DAILY 05/31/17 Cholecalciferol Vit D3 [Vitamin D3 2,000 units PO DAILY 05/31/17 (*)] Myrbetriq 50mg 50 mg PO DAILY 06/01/17 Herbals/Supplements -Info Only 1 ea PO DAILY 07/06/17 Multivitamins [Multivitamin (*)] 1 each PO DAILY 07/06/17 Nebivolol HCl [Bystolic 5 mg (*)] 5 mg PO DAILY 07/06/17 Medical Decision Making - Diagnostics Imaging Results: Imaging Impressions Lumbar Spine MRI 07/06/17 11:15 Impression: New mild L2 compression fracture. This patient may be a good candidate for additional L2 kyphoplasty. Consider consultation with interventional radiology. Results called to Dr. Robertson at 12:52 PM. ED Course/Re-evaluation: I discussed the case with interventional radiology they are planning on taking the patient to IR for kyphoplasty tomorrow. The patient had an IV established. She received IV morphine. The patient had screening preoperative laboratory studies ordered. The patient states she does not feel she can safely be discharged home this evening. She is having difficulty walking to the bathroom. Her is unable to provide assistance for her while walking. The patient will be admitted to the hospital this evening in anticipation of her kyphoplasty in the morning. Consultation was made with Dr. Camilo Mars from the hospitalist service who will admit the patient. Differential Diagnosis: Differential diagnosis considered includes lumbar compression fracture, radiculopathy, myofascial strain - Data Points Medications Given: Discontinued Medications Morphine Sulfate (Morphine) 4 mg IVP EDNOW ONE Stop: 07/06/17 16:28 Last Admin: 07/06/17 16:42 Dose: 2 mg Departure - Departure Disposition: [facility] Inpatient Acute Clinical Impression: Compression fracture of L2 Condition: Fair
[2017-07-06 17:51] LABS: % IMMATURE GRANULYOCYTES 0.4 % (0.0-1.1); ABSOLUTE IMMATURE GRANULOCYTES 0.02 10^3/uL (0.00-0.10); ADD DIFF? NO; ADD MORPH? NO; ADD SCAN? NO; ATYPICAL LYMPHOCYTE FLAG 10 (0-99); FRAGMENT RBC FLAG 0 (0-99); HEMOGLOBIN 12.3 g/dL (12.6-16.3); LEFT SHIFT FLG 0 (0-99); LIPEMIA HEMOLYSIS FLAG 90 (0-99); MEAN CELL HEMOGLOBIN 34.5 pg (27.9-34.1); MEAN CELL HEMOGLOBIN CONCENTR. 35.1 g/dL (32.4-36.7); PLATELET CLUMPS FLAG 10 (0-99); PLATELET COUNT 131 10^3/uL (150-400); RED BLOOD CELL COUNT 3.57 10^6/uL (4.18-5.33); RED CELL DISTRIBUTION WIDTH 14.6 % (11.5-15.2)
[2017-07-06 17:54] LABS: INR 1.01 (0.83-1.16); PROTIME(PATIENT) 13.5 SEC (12.0-15.0)
[2017-07-06 17:55] LABS: APTT 29.9 SEC (23.0-38.0)
[2017-07-06 18:04] LABS: ANION GAP 12 mEq/L (8-16); CALCIUM 10.2 mg/dL (8.5-10.4); CARBON DIOXIDE 24 mEq/l (22-31); CHLORIDE 100 mEq/L (97-110); CREATININE 0.8 mg/dL (0.6-1.0); GLOMERULAR FILTRATION RATE > 60; GLUCOSE 99 mg/dL (70-100); POTASSIUM 3.8 mEq/L (3.5-5.2); SODIUM 136 mEq/L (134-144)
[2017-07-06] MEDS ORDERED: OXYCODONE/APAP 5/325 TAB PO PRN (18:05)
[2017-07-06] MEDS ORDERED: ONDANSETRON DISINTEGRATING 4 MG TAB PO PRN (18:05)
[2017-07-06] MEDS ORDERED: ONDANSETRON 4 MG/2 ML VIAL IVP PRN (18:05)
[2017-07-06] MEDS ORDERED: ACETAMINOPHEN 325 MG TAB PO PRN (18:05)
[2017-07-06] MEDS ORDERED: POLYETHYLENE GLYCOL 3350 17 GM PKT PO PRN (18:07)
[2017-07-06] MEDS ORDERED: MEPERIDINE 25 MG/ML SYR IVP PRN (18:29)
[2017-07-06] MEDS ORDERED: DEXAMETHASONE 10 MG/ML VIAL IVP ONE (18:29)
[2017-07-06] MEDS ORDERED: FLUMAZENIL 0.5 MG/5 ML MDV IVP PRN (18:29)
[2017-07-06] MEDS ORDERED: fentaNYL 100 MCG/2 ML INJ IVP PRN (18:29)
[2017-07-06] MEDS ORDERED: MIDAZOLAM 2 MG/2 ML VIAL IVP PRN (18:29)
[2017-07-06] MEDS ORDERED: NALOXONE HCL 0.4 MG/ML INJ IVP PRN (18:29)
[2017-07-06] MEDS ORDERED: NS 1,000 ML IV ONE (18:29)
[2017-07-06] MEDS ORDERED: CLINDAMYCIN 600 MG/DEXTROSE 50 ML IV ONE (18:34)
--- NOTE | 2017-07-06 18:38 | GHP ---
[f rep st] HISTORY AND PHYSICAL DATE OF ADMISSION: 07/06/2017 CHIEF COMPLAINT: Back pain. HISTORY OF PRESENT ILLNESS: This is a 76-year-old female, who recently sustained a right ankle fract ure. She is currently only toe-touch weightbearing. She went to rehab and was discharged about a we ek ago. Shortly afterwards, she was getting up or twisting and felt an immediate pain in her back. This is similar to a previous compression fracture that she had. Over the last week, though the pain has been worsening, she has been unable to really care for herself. Her is also debilitated and is unable to really care for her. Thus, she has come to the emergency department. She is actua lly scheduled for a kyphoplasty next week. Currently, she is complaining of lower back pain. Otherw ise no other complaints. REVIEW OF SYSTEMS: A 10-point review of systems was obtained and other than stated, was negative. PAST MEDICAL HISTORY: 1. Osteoporosis. 2. GERD. 3. Previous compression fractures. 4. Hypertension. MEDICATIONS: Reviewed. SOCIAL HISTORY: No smoking or alcohol. Does live with her . FAMILY HISTORY: Reviewed and noncontributory. PHYSICAL EXAM: VITAL SIGNS: Afebrile, blood pressure is 143/64, heart rate 65, oxygen saturation 96 % on room air. GENERAL: The patient is well-developed, in no apparent distress. HEENT: Nonicteric sclerae. Extraocular movements intact. Moist mucous membranes. NECK: Supple. No thyromegaly. L UNGS: Good effort. Clear to auscultation bilaterally. CARDIOVASCULAR: Regular rate and rhythm. N o murmurs or gallops. ABDOMEN: Positive bowel sounds. Soft, nontender, nondistended. No hepatospl enomegaly. EXTREMITIES: No clubbing, cyanosis, or edema. BACK: There is some point tenderness in the L2 area. NEUROLOGIC: Alert and oriented x3. Moving all 4 extremities equally. PSYCH: Normal affect. LABS: CBC does show a platelet count of 131, hemoglobin slightly low at 12, and chemistry is still p ending. MRI of the spine shows a compression fracture, a new mild L2 compression fracture. ASSESSMENT: This is a 76-year-old female, who is convalescing from a right ankle fracture and who mi stained a new L2 compression fracture. PLAN: 1. L2 compression fracture. We will have IR consult in the morning to consider kyphoplasty. 2. Right ankle fracture. Patient is still toe-touch weightbearing for this. 3. Overall debility. It is unclear right now if patient will need to go back to half-way fac ili or not, due to both a new compression fracture and her right ankle fracture and left rotator cu ff injury that she has been nursing as well. 4. Hypertension. Continue medications. /[id number]/MODL
[2017-07-06] MEDS: ESCITALOPRAM OXALATE 10 MG TAB PO SCH (20:39)
[2017-07-07] MEDS ORDERED: CLINDAMYCIN 600 MG/DEXTROSE 50 ML IV ONE (06:00)
[2017-07-07] MEDS ORDERED: DEXAMETHASONE 10 MG/ML VIAL IVP ONE ×2 (06:00→11:01)
[2017-07-07] MEDS ORDERED: NS 1,000 ML IV ONE ×3 (06:00→11:01)
[2017-07-07] MEDS: PANTOPRAZOLE SODIUM 40 MG TAB PO SCH (07:30)
[2017-07-07] MEDS: NEBIVOLOL HCL 5 MG TAB PO SCH (07:34)
--- NOTE | 2017-07-07 09:11 | PDPROPOC ---
Sedation Plan of Care Sedation Plan of Care: vital signs stable, mental status noted, patient educated of risks, benefits, alternatives, patient can tolerate sedation ASA Classification: ASA 2 Planned drugs: fentanyl, midazolam Mallampati Score: Class 1 Mallampati Reference Image: Patient passed 3-3-2 rule?: Yes
[2017-07-07] MEDS ORDERED: ceFAZolin 2 GM/SWFI 2 GM/20 ML SYR IVP ONE ×2 (09:12→11:01)
--- NOTE | 2017-07-07 10:23 | PDMN ---
Medical Necessity Medical necessity: Patient meets INPT criteria per physician note and Ambulatory Surgery Exceptin Criteria: new L2 compression fracture, hx of recent R ankle fracture so toe-touch weightbearing R only. Worsening back pain after a twisting injury; awaiting IR consult for poss kyphoplasty; also has L rotator cuff injury so mobility is limited/meets Ambulatory Surgery Exception Criteria for inadequate OP care situation; anticipated LOS > 2 midnights.)
[2017-07-07] MEDS ORDERED: HYDROmorphONE/DILAUDID 2 MG TAB PO PRN ×2 (10:47→16:54)
[2017-07-07] MEDS ORDERED: LIDOCAINE 1% 300 MG/30 ML SDV ONE (10:51)
[2017-07-07] MEDS ORDERED: BUPIVACAINE 0.5% 30 ML SDV ONE (10:51)
[2017-07-07] MEDS ORDERED: fentaNYL 100 MCG/2 ML INJ IVP PRN (11:01)
[2017-07-07] MEDS ORDERED: NALOXONE HCL 0.4 MG/ML INJ IVP PRN (11:01)
[2017-07-07] MEDS ORDERED: GLUCAGON HCL 1 MG VIAL IVP PRN (11:01)
[2017-07-07] MEDS ORDERED: HEPARIN 10,000 UNIT/10 ML MDV IVP PRN (11:01)
[2017-07-07] MEDS ORDERED: MIDAZOLAM 2 MG/2 ML VIAL IVP PRN (11:01)
[2017-07-07] MEDS ORDERED: PROTAMINE SULFATE 50 MG/5 ML VIAL IVP PRN (11:01)
[2017-07-07] MEDS ORDERED: MEPERIDINE 25 MG/ML SYR IVP PRN (11:01)
[2017-07-07] MEDS ORDERED: FLUMAZENIL 0.5 MG/5 ML MDV IVP PRN (11:01)
[2017-07-07] MEDS ORDERED: ALTEPLASE 2 MG VIAL IVP PRN (11:01)
--- NOTE | 2017-07-07 12:35 | PDRADPN ---
Radiology Procedure Note Date of Procedure: 07/07/17 Radiologist: Zack Gavin Anesthesia: IV Sedation Pre-op Diagnosis: New insufficiency fracture of L2 Post-op Diagnosis: same Indication: Disabling pain Procedure: Kyphoplasty of L2 Finding(s): 4 ml cement in L2 vertebral body. Inf/Abcess present in the surg proc area at time of surgery?: No EBL: Minimal
--- NOTE | 2017-07-07 15:05 | ASMTCASEMG ---
Living Arrangements What is your living Answers: With Spouse arrangement? Who do you live with? Type Of Residence What kind of residence do Answers: House you live in? Discharge Plan Comments Coordination Status Comments Notes: Pt is a 76 y/o female admitted for L2 compression fracture. CM met w/ pt and for dispo planning. They are agreeable to going to a SNF. First choice is [facility] and second choice is [facility]. Unfortunately, [facility] does not take [employer] Medicare. Pt has been accepted to [facility]. CM notified them to obtain auth. CM spoke w/ Dr. Elkins regarding d/c POC. CM to follow. Plan: [facility] Date Signed: 07/07/2017 03:05 PM Electronically Signed By:OLU Lewis
[2017-07-07] MEDS ORDERED: MAGNESIUM HYDROXIDE 30 ML UDCUP PO PRN (16:53)
[2017-07-07] MEDS ORDERED: BISACODYL 10 MG SUPP PR PRN (16:53)
[2017-07-07] MEDS ORDERED: LACTULOSE 20 GM/30 ML UDCUP PO PRN (16:53)
--- NOTE | 2017-07-07 17:00 | HOSPPROG ---
Hospitalist Progress Note Assessment/Plan: Assessment: 76-year-old female presents with acute L2 compression fracture in the setting of osteoporosis, complicated by recent right ankle fracture, left shoulder dislocation Plan: 1. L2 compression fracture. Acute, present on MRI, most likely secondary to osteoporosis and recent increase in torsion with her right ankle fracture -kyphoplasty today by Dr. Zack Gavin -adjust from IV pain medications to oral, Dilaudid 1-4 mg as needed -more aggressive bowel regimen -incentive spirometer -patient will require nursing home facility for assist in ambulation and daily care while receiving therapy, therapy evaluations pending 2. Osteoporosis. Chronic, most likely require ongoing calcium and vitamin-D therapy, plus or minus bisphosphonates, check vitamin-D level, recommend outpatient dexa scan 3. Right ankle fracture. Patient with recent right ankle fracture and outpatient assessment by Dr. Adams Zapata -patient is touchdown weight-bearing -patient's mobility is significantly compromised by this 4. Left shoulder dislocation. Chronic, patient is currently healing, seen in the outpatient setting by Dr. Adams Zapata -also limits patient's functional mobility Diet. Regular Prophylaxis. High risk patient, Lovenox 40 Code. Full Disposition. Anticipated discharge is 07/08, pending therapy assessments inability to safely discharge patient to lower level of care, notably nursing home facility. Subjective: Patient reporting back pain with mobility, resolving if lying supine Objective: Vital Signs Temp Pulse Resp BP Pulse Ox 36.6 C 64 10 L 119/53 L 97 07/07/17 16:20 07/07/17 16:20 07/07/17 16:20 07/07/17 16:20 07/07/17 16:20 07/06/17 07/07/17 07/08/17 05:59 05:59 05:59 Intake Total 300 520 Output Total 700 0 Balance -400 520 PT 13.5 SEC (12.0-15.0) 07/06/17 16:35 INR 1.01 (0.83-1.16) 07/06/17 16:35 - Pending Discharge Pending Discharge Within 24 Hours: Yes Pending Discharge Date: 07/08/17 Pending Discharge Time: 11:00 - Physical Exam Constitutional: no apparent distress, appears nourished, not in pain, uncomfortable Cardiovascular: regular rate and rhythym, no murmur, rub, or gallop, No edema Respiratory: no respiratory distress, no rales or rhonchi, clear to auscultation Gastrointestinal: normoactive bowel sounds, soft, non-tender abdomen, no palpable masses Musculoskeletal: other (Mild effusion around right ankle, mild tenderness to palpation) Neurologic: AAOx3, sensation intact bilaterally, No weakness (Motor strength 5/ 5 bilateral lower extremity) Psychiatric: interacting appropriately, not anxious, not encephalopathic, thought process linear ICD10 Worksheet Patient Problems: Problems Problem Status Onset Closed right ankle fracture Acute Sprain of left shoulder Acute Compression fracture of L2 Acute
--- NOTE | 2017-07-07 19:19 | SOAPPROG ---
SOAP Progress Note Assessment/Plan: Assessment: Some improvement in pain. Plan: Dilaudid prn. 07/07/17 19:16 07/07/17 19:22 Subjective: Lying flat in bed, smiling, interactive. Complains of 3/10 pain eccentric rightward in midback. Objective: Pulse Ox now 97. Has had no pain meds since procedure. PO dilaudid is already ordered. CT shows excellent distribution of opaque cement. Vital Signs Temp Pulse Resp BP Pulse Ox 36.6 C 64 10 L 119/53 L 97 07/07/17 16:20 07/07/17 16:20 07/07/17 16:20 07/07/17 16:20 07/07/17 16:20 07/06/17 07/07/17 07/08/17 05:59 05:59 05:59 Intake Total 300 820 Output Total 700 0 Balance -400 820 PT 13.5 SEC (12.0-15.0) 07/06/17 16:35 INR 1.01 (0.83-1.16) 07/06/17 16:35 ICD10 Worksheet Patient Problems: Problems Problem Status Onset Compression fracture of L2 Acute Closed right ankle fracture Acute Sprain of left shoulder Acute
[2017-07-07] MEDS: ESCITALOPRAM OXALATE 10 MG TAB PO SCH (20:08)
[2017-07-07] MEDS: SENNOSIDES/DOCUSATE SODIUM TAB PO SCH (21:05)
[2017-07-08 04:51] VITALS: RESP 18
[2017-07-08 08:53] VITALS: PULSE 83; TEMP 98
[2017-07-08 09:28] VITALS: BP 96/50
[2017-07-08] MEDS: NEBIVOLOL HCL 5 MG TAB PO SCH (09:32)
--- NOTE | 2017-07-08 09:57 | PDIAF ---
- Diagnosis Diagnosis: L2 compression fracture Code Status: Full Code - Medication Management Discharge Medications: Medications to Continue on Transfer Denosumab [Prolia] 60 mg SQ Q90D 12/26/15 [Last Taken Unknown] Escitalopram Oxalate [Lexapro 10 MG] 20 mg PO HS 12/26/15 [Last Taken 07/03/17] Pantoprazole Sodium [Protonix 40mg (*)] 40 mg PO DAILY 12/26/15 [Last Taken ] Estradiol [Estrace Vaginal (*)] 1 angie VG Q3D 05/30/17 [Last Taken 07/04/17] Aspirin [Aspirin 81mg (*)] 81 mg PO DAILY 05/31/17 [Last Taken 07/06/17] Cholecalciferol Vit D3 [Vitamin D3 (*)] 2,000 units PO DAILY 05/31/17 [Last Taken 07/06/17] Myrbetriq 50mg 50 mg PO DAILY 06/01/17 [Last Taken 07/06/17] Herbals/Supplements -Info Only 1 ea PO DAILY 07/06/17 [Last Taken Unknown] Multivitamins [Multivitamin (*)] 1 each PO DAILY 07/06/17 [Last Taken 07/06/17] Acetaminophen [Tylenol 325mg (*)] 650 mg PO Q4HRS PRN tab 07/08/17 [Last Taken Unknown] HYDROmorphone HCL [Dilaudid 2 mg (*)] 1 - 4 mg PO Q4HRS PRN tab 07/08/17 [Last Taken Unknown] Nebivolol HCl [Bystolic 5 mg (*)] 2.5 mg PO DAILY tab 07/08/17 [Last Taken Unknown] Polyethylene Glycol 3350 [Miralax 17 gm (*)] 17 gm PO DAILY PRN pkt 07/08/17 [ Last Taken Unknown] Sennosides/Docusate Sodium [Senokot-S] 1 - 2 tab PO BID tab 07/08/17 [Last Taken Unknown] [employer]ination [employer] Head Antibiotics: NA Discharge Medications: Refer to the Discharge Home Medication list for PRN reason. PICC Care - Routine: N/A - Orders Services needed: Registered Nurse, Certified Lathe Machinist, Physical Therapy, Occupational Therapy Isolation Type: None Oxygen: 2L NC continuous, wean Diet Recommendation: no restrictions on diet Weigh Patient: weekly [place]: Not applicable Wound Care Instructions: bandaide Activity/Weight Bearing Restrictions: touch-down weight bearing RLE, under direction of Dr. Zapata - Follow Up Care Current Providers and Referrals: Adams Zapata MD [Medical Doctor] - follow up in 1 week (please call to schedule appointment) Britta Robertson MD [Primary Care Provider] - 3 days of d/c SNF/Rehab
--- NOTE | 2017-07-08 10:05 | PDDCSUM ---
Discharge Summary Discharge Summary: DISCHARGE SUMMARY FOLLOW-UP ITEMS: Vitamin-D level pending at time of discharge Get outpatient DEXA scan DATE OF ADMISSION: 07/06/2017 DATE OF DISCHARGE: 07/08/2017 DISCHARGE DIAGNOSES: 1. Acute L2 compression fracture 2. Chronic osteoporosis 3. Previous right ankle fracture 4. Chronic left shoulder dislocation 5. Acute atelectasis CONSULTATIONS: Interventional Radiology by Dr. Nabeel Gavin PROCEDURES / IMAGING: L2 kyphoplasty CHIEF COMPLAINT: Acute back pain SUBJECTIVE: Pain management good, patient has moved her bowels PHYSICAL EXAM ON DISCHARGE: Systolic blood pressure 96-110, heart rate 80, afebrile overnight, satting on 2 L nasal cannula, alert awake oriented x3, pain level 0/10, lungs are clear to auscultation with faint inspiratory crackles in the bilateral bases, trace right lower extremity edema LABS ON DISCHARGE: Calcium 10.2, creatinine 0.8, potassium 3.8 hemoglobin 12.3, white blood cell count 4700 HOSPITAL COURSE BY PROBLEM: The patient presented with acutely worsening back pain secondary to an L2 compression fracture, most likely secondary to her underlying osteoporosis and recent increase in torsion with physical activity as she has been favoring her right lower extremity due to recent right ankle fracture. Her L2 fracture was confirmed on lumbar spine MRI, and she underwent an interventional radiology kyphoplasty on 07/07. The patient required ongoing hospitalization overnight on the so that we were able to successfully manage her postprocedural pain and safely increase her level of physical activity. On the morning of the , the patient is able to sit up in chair, she is able to participate with physical therapy, and she is able to manage her pain with oral pain medications. She will be discharged with as needed Dilaudid, bowel regimen, and incentive spirometer to reduce atelectasis. Of note, the patient does have a marginally low, nonpathologic blood pressure, secondary to immobility, and pain medications, and on the day of discharge we have held her home dosage of Bystolic. I have adjusted her order a Bystolic to 2.5 mg daily, given that it is only being taken for symptomatic PVCs, with holding parameters for systolic blood pressures less than 100. I recommend that she follow up with her outpatient medical provider after discharge from [facility] facility to determine whether is advantageous to up titrate her Bystolic back to 5 mg daily. I have also recommend that the patient have a DEXA scan performed as an outpatient determine whether any additional means of osteoporosis treatment should be attempted, and she does have a vitamin-D level pending at time of discharge. She medically requires [facility] facility for physical therapy , occupational therapy, assistance with ADLs comma given that she has a right ankle fracture rendering her touchdown weight-bearing only, as well as her recent L2 compression fracture with kyphoplasty, as well as a chronic left shoulder dislocation. DISCHARGE MEDICATIONS: Please see official discharge medication reconciliation sheet in chart , Dilaudid 1 4 mg as needed, Senokot S scheduled, MiraLax as needed, Bystolic reduced to 2.5 mg daily. DISCHARGE INSTRUCTIONS: Please follow up with Dr. Adams Zapata in 1 week to assess your multiple orthopedic injuries, and then follow up with primary care provider after discharge from [facility] facility. TIME SPENT: Greater than 30 minutes were spent on direct patient care, as well as discharge planning and preparation.
[2017-07-08] MEDS: SENNOSIDES/DOCUSATE SODIUM TAB PO SCH (10:36)
[2017-07-08] MEDS: PANTOPRAZOLE SODIUM 40 MG TAB PO SCH (10:36)
[2017-07-08 11:00] VITALS: O2SAT 95
--- NOTE | 2017-07-08 15:40 | ASDISCHSUM ---
Discharge Information Plan Status:SNF Medically Cleared to Leave:07/07/2017 Discharge Date:07/08/2017 12:30 PM CM D/C Disposition:Care Home Facility ADT D/C Disposition:Care Home Facility Projected Discharge Date:07/07/2017 11:00 AM Transportation at D/C:Wheelchair Van Discharge Delay Reason: Follow-Up Date:07/07/2017 11:00 AM Discharge Slot: Final Diagnosis: Placement Information Referral Type:*Skilled Nursing/SNF Referral ID:[id number] Provider Name:[facility] Address 1:[address] Address 2: City:[place] Selection Factors: State:[place] Patient Contact Information Contact Name:AUBREY Relationship: Address:[address] [address] Work Phone: City:[place] Alternate Phone: State/Zip Code:[place] [address] Email: Financial Information Financial Class:Medicare Advantage Plans Primary Plan Desc:[facility] [address] [facility] Primary Plan Number:[id number] Secondary Plan Desc: Secondary Plan Number: Assessment Information [facility] Initial CM Assessment Living Arrangements What is your living Answers: With Spouse arrangement? Who do you live with? Type Of Residence What kind of residence do Answers: House you live in? Discharge Plan Comments Coordination Status Comments Notes: Pt is a 76 y/o female admitted for L2 compression fracture. CM met w/ pt and for dispo planning. They are agreeable to going to a SNF. First choice is [facility] and second choice is [facility]. Unfortunately, [facility] does not take [employer] Medicare. Pt has been accepted to [facility]. CM notified them to obtain auth. CM spoke w/ Dr. Elkins regarding d/c POC. CM to follow. Plan: [facility] Date Signed: 07/07/2017 03:05 PM Electronically Signed By:OLU Lewis LACE LACE Length of stay for Answers: 2 days current admission Acuity / Level of Care Answers: Was the patient admitted to hospital via the emergency department? Yes: Emergency dept visits in Answers: 1 last 6 months Score: 6 Date Signed: 07/08/2017 10:23 AM Electronically Signed By:Rosina Quiñones RN Case Management Discharge Plan Note Case Management Discharge Discharge Order Complete? Answers: Yes Patient to Obtain Answers: Other Notes: [facility] Medications Transportation Arranged Answers: Other Notes: Ayad from [facility] arranged and paid for gala Harmon at [facility] Transport will Pick (Date 07/08/2017 12:30 PM & Time) Faxed Final Orders Answers: Yes Agency/Facility Transfer Answers: Yes Report Printed & Faxed to Receiving Agency Discharge Comments Notes: Pt to d/c to [facility]. notified RN of d/c and report call number. Date Signed: 07/08/2017 10:26 AM Electronically Signed By:Rosina Quiñones RN Intervention Information
[2017-07-09] MEDS ORDERED: ESTRADIOL 42.5 GM CRTUBE VG SCH (08:00)
== END 2017-07-08 12:30 | DRG 516 ==
LOC: F2W 17:51 → OBSVTOIN 18:08
PROVIDERS: ADMIT Internal Medicine; ATTEND Internal Medicine
PROC: 0QU03JZ Supplement Lumbar Vertebra with Synthetic Substitute, Percutaneous Approach (ICD-10-PCS; principal; 2017-07-07 12:41)
DX: M80.08XA Age-related osteoporosis with current pathological fracture, vertebra(e), initial encounter for fracture (principal); G89.11 Acute pain due to trauma; J98.11 Atelectasis; Z87.310 Personal history of (healed) osteoporosis fracture; S82.891D Other fracture of right lower leg, subsequent encounter for closed fracture with routine healing; K21.9 Gastro-esophageal reflux disease without esophagitis; I10 Essential (primary) hypertension
CPT/HCPCS: 96374; 97116-GP; 97162-GP; 97166-GO; G8978-GP-CK; G8979-GP-CI; G8987-GO-CI; G8988-GO-CI; J0690; J1100; J2250; J2310; J3010

== ENCOUNTER 2017-07-22 23:39 | Emergency (ER) | payer OTHER ==
[2017-07-22 23:50] VITALS: O2SAT 94
--- NOTE | 2017-07-23 00:47 | EDPHY ---
H & P Stated Complaint: orif surg R ankle nov, noticed a red, warm to touch bump on R bills Time Seen by Provider: 07/23/17 00:15 HPI/ROS: Chief Complaint: Right leg swelling HPI: 76-year-old woman who several weeks status post right ankle surgery secondary to fracture. She has been wearing an orthopedic walking boot. Patient took off the boat and [place] stockings this evening and noted increasing swelling in the lower portion or lateral ankle is concerned about possible DVT. She has not had any posterior calf pain. No redness. No chest pain or shortness of breath. No cough. ROS: 10 point Review of Systems is negative except as noted in the HPI. Physical Exam: Gen: Awake, Alert, No Distress HEENT: Nose: no rhinorrhea Eyes: PERRLA, EOMI Mouth: Moist mucosa Neck: Supple, no JVD Ext: Right leg is in an orthopedic boot. She has got 2+ pitting edema of her foot with 1+ nonpitting edema of her ankle. Calf is soft and nontender. There is no erythema. Skin: no rash Neuro: CN II-XII intact, Sensation grossly intact, Strength 5/5 in bilateral upper and lower extremities - Medical/Surgical History Hx Asthma: No Hx Chronic Respiratory Disease: No Hx Diabetes: No Hx Cardiac Disease: Yes Hx Renal Disease: No Hx Cirrhosis: No Hx Alcoholism: No Hx HIV/AIDS: No Hx Splenectomy or Spleen Trauma: No Other PMH: GERD, DEPRESSION, OSTEOPEROSIS,. HTN, RIGHT ROTATOR CUFF REPAIR, RIGHT ANKLE DISLOCATION/FRACTURE, KYPHOPLASTY x 2 - Social History Smoking Status: Never smoked Constitutional: Initial Vital Signs Temperature (C) 36.5 C 07/22/17 23:44 Heart Rate 65 07/22/17 23:44 Respiratory Rate 18 07/22/17 23:44 Blood Pressure 118/69 07/22/17 23:44 O2 Sat (%) 94 07/22/17 23:44 O2 Delivery Mode Room Air Allergies/Adverse Reactions: cyclobenzaprine [Cyclobenzaprine] Allergy (Verified 07/22/17 23:50) Hives erythromycin base [Erythromycin Base] Allergy (Verified 07/22/17 23:50) Diarrhea/ GI DISTRESS Penicillins Allergy (Verified 07/22/17 23:50) HALLUCINATION Sulfa (Sulfonamide Antibiotics) Allergy (Verified 07/22/17 23:50) Hives ENVIRONMENTAL Allergy (Mild, Uncoded 06/19/12 14:45) STUFFY NOSE Home Medications: Medication Instructions Recorded Denosumab [Prolia] 60 mg SQ Q90D 12/26/15 Escitalopram Oxalate [Lexapro 10 20 mg PO HS 12/26/15 MG] Pantoprazole Sodium [Protonix 40mg 40 mg PO DAILY 12/26/15 (*)] Estradiol [Estrace Vaginal (*)] 1 angie VG Q3D 05/30/17 Aspirin [Aspirin 81mg (*)] 81 mg PO DAILY 05/31/17 Cholecalciferol Vit D3 [Vitamin D3 2,000 units PO DAILY 05/31/17 (*)] Myrbetriq 50mg 50 mg PO DAILY 06/01/17 Herbals/Supplements -Info Only 1 ea PO DAILY 07/06/17 Multivitamins [Multivitamin (*)] 1 each PO DAILY 07/06/17 Acetaminophen [Tylenol 325mg (*)] 650 mg PO Q4HRS PRN tab 07/08/17 HYDROmorphone HCL [Dilaudid 2 mg 1 - 4 mg PO Q4HRS PRN tab 07/08/17 (*)] Nebivolol HCl [Bystolic 5 mg (*)] 2.5 mg PO DAILY tab 07/08/17 Polyethylene Glycol 3350 [Miralax 17 gm PO DAILY PRN pkt 07/08/17 17 gm (*)] Fosamax 5mg 07/22/17 Nystatin Susp 07/22/17 Medical Decision Making - Diagnostics Imaging Results: Right leg duplex ultrasound is negative for DVT per Dr. Franz. Imaging: Discussed imaging studies w/ nurse practitioner per diem Radiologist ED Course/Re-evaluation: 76-year-old leg swelling. I think this is likely secondary to her orthopedic boot. Ultrasound is negative for DVT. Will discharge with follow up with [facility] as needed. Departure - Departure Disposition: Home, Routine, Self-Care Clinical Impression: Edema Condition: Good Instructions: Leg Edema (ED) Additional Instructions: Follow up with orthopedic surgeon in 3-4 days for further evaluation. Return to the emergency department for increasing swelling, redness, chest pain or shortness of breath, or any other concerns. Referrals: Britta Robertson MD [Primary Care Provider] - As per Instructions
[2017-07-23 01:43] VITALS: BP 107/73; PULSE 73; RESP 15; TEMP 97.9
== END 2017-07-23 01:42 | disposition home or self-care (01) ==
DX: R60.0 Localized edema (principal); I10 Essential (primary) hypertension; Z79.82 Long term (current) use of aspirin

== ENCOUNTER → 2017-08-06 | Outpatient (CLI) | payer OTHER | LOC: FIMAGING 10:01 | PROVIDERS: ATTEND Family Medicine | DX: Z13.820 Encounter for screening for osteoporosis (principal); M85.88 Other specified disorders of bone density and structure, other site ==

== ENCOUNTER → 2017-12-14 | Outpatient (CLI) | payer OTHER | LOC: FIMAGING 09:26 | PROVIDERS: ATTEND Family Medicine | DX: R93.2 Abnormal findings on diagnostic imaging of liver and biliary tract (principal); N28.1 Cyst of kidney, acquired; B37.0 Candidal stomatitis; J30.9 Allergic rhinitis, unspecified; K58.9 Irritable bowel syndrome, unspecified ==

== ENCOUNTER 2017-12-25 18:14 | Emergency (ER) | payer OTHER ==
[2017-12-25] MEDS ORDERED: fentaNYL 100 MCG/2 ML INJ IVP ONE (18:32)
--- NOTE | 2017-12-25 18:35 | EDPHY ---
H & P Time Seen by Provider: 12/25/17 18:24 HPI/ROS: CHIEF COMPLAINT: Abdominal pain HISTORY OF PRESENT ILLNESS: This is a 77-year-old femalewith a h/o GERD who presents with right upper quadrant abdominal pain that developed acutely while she was at a [facility] service. She has been undergoing an outpatient evaluation for bilateral upper admitted epigastric abdominal pain and recently had a gallbladder ultrasound that reportedly showed sludge. She has apparently had epigastric and bilateral upper abdominal pain on and off for years. Today she had the onset of severe pain followed by vomiting. She continues with right upper quadrant pain that she describes as severe. It is constant. She has not had recent fever. No dysuria, urgency, or frequency. No back pain. She was well this morning. REVIEW OF SYSTEMS: A ten point review of systems was performed and is negative with the exception of the items mentioned in the HPI. Past medical history: 1. GERD 2. HTN 3. Depression Past surgical history: 1. Surgery for broken ankle, right 2. Right rotator cuff repair 3. Kyphoplasty X 2 Family history: Social history: She lives with her at [facility]. No tobacco products. General Appearance: Alert. Vital signs reviewed. Eyes: Pupils equal and round, no conjunctival injection, no discharge. Anicteric. ENT, Mouth: Mucous membranes are moist, no oropharyngeal erythema or edema. Neck: No lymphadenopathy, supple. Respiratory: Lungs are clear to auscultation; no wheezes, rales, or rhonchi. Cardiovascular: Regular rate and rhythm; no murmur, rub, or gallop. Gastrointestinal: Abdomen is soft with tenderness in the right upper quadrant, no guarding, no masses or organomegaly, bowel sounds normal. Skin: Warm and dry, no rashes on exposed skin, normal color. Back: Nontender to palpation over the thoracolumbar spine. No CVAT. Extremities: Bilateral extremity edema, worse on the right where she has recently undergone surgery for an ankle fracture, no calf tenderness or swelling. Neurological: Alert and oriented. Moving all four extremities easily and equally. Psychiatric: Normal affect. - Medical/Surgical History Hx Asthma: No Hx Chronic Respiratory Disease: No Hx Diabetes: No Hx Cardiac Disease: Yes Hx Renal Disease: No Hx Cirrhosis: No Hx Alcoholism: No Hx HIV/AIDS: No Hx Splenectomy or Spleen Trauma: No Other PMH: GERD, DEPRESSION, OSTEOPEROSIS,. HTN, RIGHT ROTATOR CUFF REPAIR, RIGHT ANKLE DISLOCATION/FRACTURE, KYPHOPLASTY x 2 - Social History Smoking Status: Never smoked Constitutional: Initial Vital Signs Temperature (C) 36.7 C 12/25/17 18:34 Heart Rate 72 12/25/17 18:34 Respiratory Rate 16 12/25/17 18:34 Blood Pressure 144/78 H 12/25/17 18:34 O2 Sat (%) 94 12/25/17 18:34 O2 Delivery Mode Room Air Allergies/Adverse Reactions: cyclobenzaprine [Cyclobenzaprine] Allergy (Verified 07/22/17 23:50) Hives erythromycin base [Erythromycin Base] Allergy (Verified 07/22/17 23:50) Diarrhea/ GI DISTRESS Penicillins Allergy (Verified 07/22/17 23:50) HALLUCINATION Sulfa (Sulfonamide Antibiotics) Allergy (Verified 07/22/17 23:50) Hives ENVIRONMENTAL Allergy (Mild, Uncoded 06/19/12 14:45) STUFFY NOSE Home Medications: Medication Instructions Recorded Denosumab [Prolia] 60 mg SQ Q90D 12/26/15 Escitalopram Oxalate [Lexapro 10 20 mg PO HS 12/26/15 MG] Pantoprazole Sodium [Protonix 40mg 40 mg PO DAILY 12/26/15 (*)] Cholecalciferol Vit D3 [Vitamin D3 2,000 units PO DAILY 05/31/17 (*)] Myrbetriq 50mg 50 mg PO DAILY 06/01/17 Herbals/Supplements -Info Only 1 ea PO DAILY 07/06/17 Multivitamins [Multivitamin (*)] 1 each PO DAILY 07/06/17 Acetaminophen [Tylenol 325mg (*)] 650 mg PO Q4HRS PRN tab 07/08/17 Nebivolol HCl [Bystolic 5 mg (*)] 2.5 mg PO DAILY tab 07/08/17 Polyethylene Glycol 3350 [Miralax 17 gm PO DAILY PRN pkt 07/08/17 17 gm (*)] Nystatin Susp 07/22/17 Medical Decision Making ED Course/Re-evaluation: I reviewed her ultrasound that was done in November of this year. Patient was given 75 mcg of fentanyl. She was re-evaluated at 6:50 p.m.. She is resting comfortably. Abdomen is soft and nontender on reexamination. No guarding. At 7:30 p.m. She continues to rest comfortably. She says she has a very small amount of pain remaining. Her abdomen is benign, nontender. Patient re-evaluated at 8:15 p.m.. She has passed a p.o. Challenge. Abdomen remains benign. I spoke with Dr. Khadar Arguello, on-call for general surgery. After reviewing the written report of her recent ultrasound he recommends cholecystectomy. She has normal labs and has been able to take p.o. Tonight. Her pain is improved. She has a gallbladder polyp measuring 12 mm. She is given his office number and will call to schedule an elective cholecystectomy. I have advised her to return if she develops fever, vomiting, or persistent right upper quadrant abdominal pain. Her questions were answered. Differential Diagnosis: Abdominal pain including but not limited to appendicitis, cholecystitis, gastritis and urinary tract infection. - Data Points Laboratory Results: Laboratory Results 12/25/17 18:40 12/25/17 18:40 Medications Given: Discontinued Medications Fentanyl (Sublimaze) 75 mcg IVP EDNOW ONE Stop: 12/25/17 18:33 Last Admin: 12/25/17 18:40 Dose: 75 mcg Departure - Departure Disposition: Home, Routine, Self-Care Clinical Impression: Abdominal pain, Gallbladder polyp Condition: Good Instructions: Acute Abdominal Pain (ED) Additional Instructions: Please call Dr. Arguello's office tomorrow to schedule an appointment to talk about having your gallbladder removed. If you develop fever, vomiting, return of your abdominal pain--you should be re- evaluated. Referrals: Britta Robertson MD [Primary Care Provider] - As per Instructions Khadar Arguello MD [Medical Doctor] - As per Instructions
[2017-12-25 18:53] LABS: PLATELET COUNT 119 10^3/uL (150-400)
[2017-12-25 21:25] VITALS: BP 129/67
== END 2017-12-25 21:26 | disposition home or self-care (01) ==
DX: K82.4 Cholesterolosis of gallbladder (principal); I10 Essential (primary) hypertension
CPT/HCPCS: 96374; J3010

== ENCOUNTER 2018-01-05 06:03 | Day surgery (SDC) | payer OTHER ==
[2018-01-05] MEDS ORDERED: CLINDAMYCIN 900 MG/DEXTROSE 50 ML IV ONE (06:38)
[2018-01-05] MEDS ORDERED: EPINEPHrine 1 MG/ML INJ ONE (06:49)
[2018-01-05] MEDS ORDERED: IOPAMIDOL (ISOVUE-M 300) 15 ML VIAL ONE (06:49)
[2018-01-05] MEDS ORDERED: BUPIVACAINE 0.25% 30 ML SDV ONE (06:49)
[2018-01-05] MEDS ORDERED: LR 1,000 ML IV ONE (06:59)
--- NOTE | 2018-01-05 06:59 | POSTANESTH ---
Post Anesthetic Evaluation Cardiovascular Status: Normal, Stable Respiratory Status: Normal, Stable Level of Consciousness/Mental Status: Can Participate in Eval, Moderately Sleepy Pain Control: Adequate, Prn Tx Ordered Nausea/Vomiting Control: Adequate, Prn Tx Ordered Complications Possibly Related to Anesthesia: None Noted
--- NOTE | 2018-01-05 07:12 | PDANEPAE ---
ANE History of Present Illness 77 yo female for cholecystectomy. ANE Past Medical History - Cardiovascular History Hx Hypertension: No Hx Arrhythmias: Yes Hx Chest Pain: No Hx Coronary Artery / Peripheral Vascular Disease: No Hx CHF / Valvular Disease: No Hx Palpitations: Yes Cardiovascular History Comment: pt has PAC's & PVC's - Pulmonary History Hx COPD: No Hx Asthma/Reactive Airway Disease: No Hx Recent Upper Respiratory Infection: No Hx Oxygen in Use at Home: No Hx Sleep Apnea: No Sleep Apnea Screening Result - Last Documented: Positive - Neurologic History Hx Cerebrovascular Accident: No Hx Seizures: No Hx Dementia: No - Endocrine History Hx Diabetes: No Hypothyroid: No Obesity: no - Renal History Hx Renal Disorders: No Renal History Comment: HX OF RENAL CYSTS - Liver History Hx Hepatic Disorders: Yes Hepatic History Comment: fatty liver, due for liver biopsy - Neurological & Psychiatric Hx Hx Neurological and Psychiatric Disorders: Yes Neurological / Psychiatric History Comment: DEPRESSION - Cancer History Hx Cancer: Yes Cancer History Comment: SKIN CANCER - Congenital Disorder History Hx Congenital Disorders: No - GI History Hx Gastrointestinal Disorders: Yes Gastrointestinal History Comment: GERD - Other Health History Other Health History: allergy symptoms. no curviture to neck,pt needs rolled towel under neck. L collar bone displaced. osteoporosis - Chronic Pain History Chronic Pain: No - Surgical History Prior Surgeries: KYPHOPLASTY 12/03, CATARACT SURGERY 06/05, D&C, ROTATOR CUFF REPAIR, MOH'S SURGERY ANE Review of Systems Review of Systems: - Exercise capacity METS (RN): 4 METS - Systems Constitutional: Reports: no symptoms Cardiac: Reports: no symptoms Muscolosketal: Reports: joint pain (L clavicle displacement after fall, seeing PT) Hematologic/Lymphatic: Reports: other (R LE swelling, probably secondary to ankle fracture - pt on HCTZ for this) ANE Patient History - Allergies Allergies/Adverse Reactions: cyclobenzaprine [Cyclobenzaprine] Allergy (Verified 01/04/18 12:07) Hives erythromycin base [Erythromycin Base] Allergy (Verified 01/04/18 12:07) Diarrhea/ GI DISTRESS Penicillins Allergy (Verified 01/04/18 12:07) HALLUCINATION Sulfa (Sulfonamide Antibiotics) Allergy (Verified 01/04/18 12:07) Hives ENVIRONMENTAL Allergy (Mild, Uncoded 01/04/18 12:07) STUFFY NOSE - Home Medications Home Medications: Denosumab [Prolia] 12/26/15 [Last Taken 01/04/18] Escitalopram Oxalate [Lexapro 10 MG] 12/26/15 [Last Taken 01/04/18] Pantoprazole Sodium [Protonix 40mg (*)] 12/26/15 [Last Taken 01/04/18] Cholecalciferol Vit D3 [Vitamin D3 (*)] 05/31/17 [Last Taken 01/04/18] Myrbetriq 50mg 06/01/17 [Last Taken 07/06/17] Herbals/Supplements -Info Only 07/06/17 [Last Taken 01/04/18] Multivitamins [Multivitamin (*)] 07/06/17 [Last Taken 01/04/18] Acetaminophen [Tylenol 325mg (*)] 01/04/18 [Last Taken Unknown] Nebivolol HCl [Bystolic 5 mg (*)] 01/04/18 [Last Taken 01/04/18] Polyethylene Glycol 3350 [Miralax 17 gm (*)] 01/04/18 [Last Taken 01/04/18] - NPO status NPO Status: no food or drink >8 hours - Anes Hx Anes Hx: no prior problems Hx Anesthesia Complications (with details): Had a reaction to something at the dentist wherein her throat "closed", no problems with subsequent appts. - Smoking Hx Smoking Status: Never smoked Marijuana use: No - Alcohol Use Alcohol Use: Occasionally (1/day) - Family Anes Hx Family Anes Hx: neg - N/A Family Hx Anesthesia Complications: NONE ANE Labs/Vital Signs - Vital Signs Vital Signs: reviewed preoperatively; see RN documention for details Height: 158.8 cm Weight: 73.4 kg ANE Physical Exam - Airway Neck exam: FROM (short TMD) Mallampati Score: Class 2 Mouth exam: normal dental/mouth exam - Pulmonary Pulmonary: clear to auscultation - Cardiovascular Cardiovascular: regular rate and rhythym - ASA Status ASA Status: III ANE Anesthesia Plan Anesthesia Plan: general endotracheal anesthesia
--- NOTE | 2018-01-05 07:31 | PDHPUP ---
History & Physical Update H&P update statement: This history and physical update is based on an assessment of the patient which was completed after admission or registration (within 24 hours), but prior to the surgery/procedure. H&P update: H&P reviewed & patient examined, no change in patient's condition since H&P completed
[2018-01-05] MEDS ORDERED: fentaNYL 100 MCG/2 ML INJ ONE ×3 (07:32→09:16)
[2018-01-05] MEDS ORDERED: ROCURONIUM 100 MG/10 ML VIAL ONE (07:32)
[2018-01-05] MEDS ORDERED: LIDOCAINE 2% 5 ML SDV ONE ×2 (07:32→09:15)
[2018-01-05] MEDS ORDERED: DEXAMETHASONE 4 MG/ML VIAL ONE ×2 (07:32→09:15)
[2018-01-05] MEDS ORDERED: PROPOFOL 200 MG/20 ML VIAL ONE (07:33)
[2018-01-05] MEDS ORDERED: KETOROLAC 30 MG/1 ML SDV ONE (08:28)
[2018-01-05] MEDS ORDERED: SUGAMMADEX SODIUM 200 MG/2 ML VIAL IVP ONE (08:36)
[2018-01-05] MEDS ORDERED: NALOXONE HCL 0.4 MG/ML INJ IVP PRN (08:37)
[2018-01-05] MEDS ORDERED: LR 500 ML IV PRN (08:37)
[2018-01-05] MEDS ORDERED: fentaNYL 100 MCG/2 ML INJ IVP PRN (08:37)
[2018-01-05] MEDS ORDERED: ALBUTEROL 3 ML DEYVIAL IH PRN (08:37)
[2018-01-05] MEDS ORDERED: ONDANSETRON 4 MG/2 ML VIAL IVP PRN (08:37)
[2018-01-05] MEDS ORDERED: ONDANSETRON 4 MG/2 ML VIAL ONE (08:41)
[2018-01-05] MEDS ORDERED: PROPOFOL/EMULSION 500 MG/50 ML BOTTLE IV ONE (09:15)
[2018-01-05] MEDS ORDERED: OXYCODONE/APAP 5/325 TAB ONE (09:41)
[2018-01-05] MEDS: HYDROCODONE/APAP 5/325 TAB PO PRN ×2 (09:44→10:40)
[2018-01-05] MEDS ORDERED: HYDROCODONE/APAP 5/325 TAB ONE ×2 (09:44→10:37)
--- NOTE | 2018-01-05 10:18 | POSTOPPROG ---
Post Op Note Date of Operation: 01/05/18 Surgeon: Khadar Arguello Anesthesiologist: Archie Anesthesia: GET(General Endotracheal) Pre-op Diagnosis: GB polyp, biliary colic Post-op Diagnosis: same Procedure: lap beryl, liver biopsy Findings: critical view Inf/Abcess present in the surg proc area at time of surgery?: No EBL: Minimal Specimen(s): GB Liver biopsy
--- NOTE | 2018-01-05 11:53 | GOP ---
[f rep st] OPERATIVE REPORT DATE OF OPERATION: 01/05/2018 SURGEON: Khadar Arguello MD ADULT PROTECTIVE CASEWORKER: None. ANESTHESIA: General endotracheal. ANESTHESIOLOGIST: Nell Miller MD. PREOPERATIVE DIAGNOSIS: Gallbladder polyp and biliary colic with concerning liver findings on ultras ound. POSTOPERATIVE DIAGNOSIS: Gallbladder polyp and biliary colic with concerning liver findings on ultra sound. PROCEDURE PERFORMED: 1. Laparoscopic cholecystectomy. 2. Liver biopsy. FINDINGS: Critical view obtained. Minimal to no adhesions to the gallbladder wall. Liver did have somewhat of a cobblestone appearance. Biopsy taken from segment IV. SPECIMENS: 1. Gallbladder. 1. Liver biopsy. ESTIMATED BLOOD LOSS: 2. 10 cc. DESCRIPTION OF PROCEDURE: The patient was greeted in the preoperative suite. Once again, risks, santos efits, and alternatives were discussed. Consent was signed. She was then brought back to the operat sherie suite, placed on the OR table in supine position. After all anesthesia machines including SCDs w ere on and functioning, a [employer] time-out was performed. After successful inducti on of general anesthesia, the patient's abdomen was prepped and draped in typical sterile fashion. I entered the abdomen via an infraumbilical cutdown through which the Veress needle was passed. I ach ieved pneumoperitoneum to 15 mmHg which was well tolerated by the patient. Through this I inserted a 12 mm Visiport. Once successfully in the patient's abdomen, I inserted 3 additional 5 mm trocars, 1 in the subxiphoid, 2 in the right upper quadrant all under direct visualization. I successfully ret racted the gallbladder over the liver edge by dissecting out the infundibulum. I identified 2 and on ly 2 structures leading toward the gallbladder. These were identified as the cystic duct and cystic artery. I placed 3 total clips, 2 on the proximal, 1 in the distal end of both the duct and the arvind ry and divided them. I then took the gallbladder off the liver bed using electrocautery. It was davin carter in an EndoCatch bag and removed. I turned my attention then towards the liver biopsy. I identif ied an area in segment IV and sharply removed it. Hemostasis in that wound bed was achieved with caden ctrocautery. I then irrigated the right upper quadrant. Hemostasis in the liver bed was good. I di d use Mabel to aid in my hemostasis. It was checked. It was good. I then removed my ports, evacua zhane my pneumoperitoneum. I closed my infraumbilical port site with an 0 Vicryl stitch noting excelle nt fascial reapproximation. Local anesthesia was then infiltrated into all port sites. The skin was closed with Monocryl. Dermabond was placed. The patient was then extubated in the operative suite, taken the PACU in satisfactory condition. DRAINS: None. COUNTS: All counts were reported as correct x2. /[id number]/MODL
[2018-01-05 15:00] VITALS: BP 135/82
== END 2018-01-05 14:30 | disposition home or self-care (01) ==
LOC: FSGY 06:03
PROVIDERS: ATTEND Surgery
PROC: 0FT44ZZ Resection of Gallbladder, Percutaneous Endoscopic Approach (ICD-10-PCS; principal; 2018-01-05 07:30)
PROC: 0FB04ZX Excision of Liver, Percutaneous Endoscopic Approach, Diagnostic (ICD-10-PCS; principal; 2018-01-05 07:30)
DX: K80.20 Calculus of gallbladder without cholecystitis without obstruction (principal); K73.9 Chronic hepatitis, unspecified; K21.9 Gastro-esophageal reflux disease without esophagitis; I49.8 Other specified cardiac arrhythmias; E78.00 Pure hypercholesterolemia, unspecified; M81.0 Age-related osteoporosis without current pathological fracture; Z91.81 History of falling
CPT/HCPCS: J0171; J1100; J1885; J2405; J2704; J3010; Q9967

== ENCOUNTER → 2018-03-10 | Outpatient (CLI) | payer OTHER ==
[~2018-03-10] MED LIST: IOPAMIDOL (ISOVUE-300) 100 ML BTL ONE
== END ==
LOC: FIMAGING 14:59
PROVIDERS: ATTEND Surgery
DX: K44.9 Diaphragmatic hernia without obstruction or gangrene (principal); N28.1 Cyst of kidney, acquired
CPT/HCPCS: 74177; Q9967

== ENCOUNTER → 2018-05-18 | Outpatient (CLI) | payer OTHER | LOC: SBRMNEURO 20:00 | PROVIDERS: ATTEND Student in an Organized Health Care Education/Training Program | DX: G47.33 Obstructive sleep apnea (adult) (pediatric) (principal) ==

== ENCOUNTER 2018-06-23 07:33 | Day surgery (SDC) | payer OTHER ==
--- NOTE | 2018-06-23 06:50 | PDANEPAE ---
ANE History of Present Illness 77 y/o female here for right inguinal hernia repair. ANE Past Medical History - Cardiovascular History Hx Hypertension: No Hx Arrhythmias: Yes Hx Chest Pain: No Hx Coronary Artery / Peripheral Vascular Disease: No Hx CHF / Valvular Disease: No Hx Palpitations: Yes Cardiovascular History Comment: pt has PAC's & PVC's - Pulmonary History Hx COPD: No Hx Asthma/Reactive Airway Disease: No Hx Recent Upper Respiratory Infection: No Hx Oxygen in Use at Home: No Hx Sleep Apnea: Yes Sleep Apnea Screening Result - Last Documented: Positive Pulmonary History Comment: recent dx of MARTINEZ, has not used Cpap yet - Neurologic History Hx Cerebrovascular Accident: No Hx Seizures: No Hx Dementia: No Neurologic History Comment: some nerve pain in right foot since ankle ORIF - Endocrine History Hx Diabetes: No - Renal History Hx Renal Disorders: No Renal History Comment: HX OF RENAL CYSTS. urinary incontinence - Liver History Hx Hepatic Disorders: No Hepatic History Comment: was told had fatty liver, biopsy was negative - Neurological & Psychiatric Hx Hx Neurological and Psychiatric Disorders: Yes Neurological / Psychiatric History Comment: DEPRESSION - Cancer History Hx Cancer: Yes Cancer History Comment: SKIN CANCER, MOHS procedues - Congenital Disorder History Hx Congenital Disorders: No - GI History Hx Gastrointestinal Disorders: Yes Gastrointestinal History Comment: GERD - Other Health History Other Health History: wears glasses. has some hearing loss, no hearing aids. allergy symptoms. no curviture to neck, pt needs rolled towel under neck in some situations like the dentist chair. osteoporosis. left collar bone displacement since fall in 2017. anemia - Chronic Pain History Chronic Pain: Yes (low back, right ankle) - Surgical History Prior Surgeries: cholecystectomy 12/2017. Right ankle ORIF 05/2017. KYPHOPLASTY x 2. CATARACT SURGERY 06/05. D&C. ROTATOR CUFF REPAIR. multiple MOH'S SURGERY ANE Review of Systems Review of Systems: - Exercise capacity METS (RN): 3 METS ANE Patient History - Allergies Allergies/Adverse Reactions: cyclobenzaprine [Cyclobenzaprine] Allergy (Verified 01/04/18 12:07) Hives erythromycin base [Erythromycin Base] Allergy (Verified 06/21/18 17:11) Diarrhea/GI issues Penicillins Allergy (Verified 06/21/18 17:11) hallucinations (as a child) Sulfa (Sulfonamide Antibiotics) Allergy (Verified 01/04/18 12:07) Hives ENVIRONMENTAL Allergy (Uncoded 06/21/18 17:11) stuffy nose - Home Medications Home medications: home medication list seen and reviewed Home Medications: Denosumab [Prolia] 12/26/15 [Last Taken 01/04/18] Escitalopram Oxalate [Lexapro 10 MG] 12/26/15 [Last Taken 01/04/18] Pantoprazole Sodium [Protonix 40mg (*)] 12/26/15 [Last Taken 01/04/18] Cholecalciferol Vit D3 [Vitamin D3 (*)] 05/31/17 [Last Taken 01/04/18] Myrbetriq 50mg 06/01/17 [Last Taken 07/06/17] Herbals/Supplements -Info Only 07/06/17 [Last Taken 01/04/18] Multivitamins [Multivitamin (*)] 07/06/17 [Last Taken 01/04/18] Nebivolol HCl [Bystolic 5 mg (*)] 01/04/18 [Last Taken 01/04/18] Polyethylene Glycol 3350 [Miralax 17 gm (*)] 01/04/18 [Last Taken 01/04/18] Hydrochlorothiazide 01/05/18 [Last Taken 01/04/18] Azelastine HCl 06/21/18 [Last Taken Unknown] - Smoking Hx Smoking Status: Never smoked - Family Anes Hx Family Hx Anesthesia Complications: none ANE Labs/Vital Signs - Vital Signs Vital Signs: reviewed preoperatively; see RN documention for details Height: 160.02 cm Weight: 72.575 kg ANE Physical Exam - Airway Neck exam: FROM Mallampati Score: Class 3 Mouth exam: normal dental/mouth exam - Pulmonary Pulmonary: clear to auscultation - Cardiovascular Cardiovascular: regular rate and rhythym - ASA Status ASA Status: III ANE Anesthesia Plan Anesthesia Plan: GA w LMA
[2018-06-23] MEDS ORDERED: ceFAZolin 2 GM/DEXTROSE 100 ML IV ONE (08:04)
[2018-06-23] MEDS ORDERED: BUPIVACAINE/EPI 0.25% 30 ML SDV ONE (08:16)
[2018-06-23] MEDS ORDERED: fentaNYL 100 MCG/2 ML INJ ONE (08:26)
[2018-06-23] MEDS ORDERED: PROPOFOL 200 MG/20 ML VIAL ONE (08:26)
[2018-06-23] MEDS ORDERED: LR 1,000 ML IV ONE (08:28)
[2018-06-23] MEDS ORDERED: DEXAMETHASONE 4 MG/ML VIAL ONE ×3 (09:00)
[2018-06-23] MEDS ORDERED: LIDOCAINE 2% 100 MG/5 ML SYR ONE (09:00)
[2018-06-23] MEDS ORDERED: oxyCODONE IR 5 MG TAB PO PRN (09:14)
[2018-06-23] MEDS ORDERED: ALBUTEROL 3 ML DEYVIAL IH PRN (09:14)
[2018-06-23] MEDS ORDERED: DIAZEPAM 5 MG/ML 1 ML SYR IVP PRN (09:14)
[2018-06-23] MEDS ORDERED: ONDANSETRON 4 MG/2 ML VIAL IVP PRN (09:14)
[2018-06-23] MEDS ORDERED: fentaNYL 100 MCG/2 ML INJ IVP PRN (09:14)
[2018-06-23] MEDS ORDERED: NALOXONE HCL 0.4 MG/ML INJ IVP PRN (09:14)
[2018-06-23] MEDS ORDERED: PHENYLEPHRINE HCL 100 MCG/ML SYR IVP PRN (09:14)
[2018-06-23] MEDS ORDERED: HYDROmorphONE/DILAUDID 2 MG/ML INJ IVP PRN (09:14)
[2018-06-23] MEDS ORDERED: MEPERIDINE 25 MG/0.5 ML AMP IVP PRN (09:14)
[2018-06-23] MEDS ORDERED: LABETALOL HCL 20 MG/4 ML INJ IVP PRN (09:14)
[2018-06-23] MEDS ORDERED: PROMETHAZINE HCL 25 MG/ML INJ IVP PRN (09:14)
[2018-06-23] MEDS ORDERED: LR 500 ML IV PRN (09:14)
[2018-06-23] MEDS ORDERED: ACETAMINOPHEN 500 MG TAB PO PRN (09:14)
--- NOTE | 2018-06-23 09:49 | POSTOPPROG ---
Post Op Note Date of Operation: 06/23/18 Surgeon: Khadar Arguello Anesthesiologist: Jolene Anesthesia: GET(General Endotracheal) Pre-op Diagnosis: Right inguinal hernia Post-op Diagnosis: same Procedure: Open right inguinal hernia repair with mesh Findings: moderate indirect hernia Inf/Abcess present in the surg proc area at time of surgery?: No EBL: Minimal Specimen(s): hernia sac
[2018-06-23 11:08] VITALS: BP 118/79
--- NOTE | 2018-06-23 17:34 | GOP ---
DATE OF OPERATION: 06/23/2018 SURGEON: Khadar Arguello MD ANESTHESIA: General endotracheal. ANESTHESIOLOGIST: Dr. Rosanna Fernández. PREOPERATIVE DIAGNOSIS: Right inguinal hernia. POSTOPERATIVE DIAGNOSIS: Indirect right inguinal hernia. PROCEDURE PERFORMED: Open right inguinal hernia repair with mesh. FINDINGS: Moderate-sized indirect hernia sac successfully skeletonized and reduced with high ligatio n. Defect was repaired with a Parietex site-specific mesh. SPECIMENS: Hernia sac. ESTIMATED BLOOD LOSS: 5 cc. DESCRIPTION OF PROCEDURE: The patient was greeted in the preoperative suite, and once again, risks, benefits, and alternatives were discussed. Consent was signed. She was then brought back to the ope rative suite, placed on the OR table in a supine position. After all anesthesia machines, including SCDs were on and functioning, a [employer] time-out was performed. After successful i nduction of general anesthesia, the patient's abdomen was prepped and draped in typical sterile fashi on. I commenced the procedure by making a field block in the right lower quadrant and made a 4 cm incisio n over the right groin adjacent to the pubic tubercle. I carried this down through the subcutaneous tissue through Noé's fascia and encountered the external oblique aponeurosis. I opened this sharp ly. Flaps were created both superiorly and inferiorly. Her round ligament, as well as her indirect sac were then encircled. The round ligament was successfully isolated and ligated with 3-0 Vicryl ti e and divided. The hernia sac was then skeletonized from the remaining structures. It was opened. No contents were in it at this time. It was highly ligated, divided, and allowed to return back to t he abdominal cavity. The floor was weak. It was imbricated with a running 2-0 Vicryl. After this was done, an appropriate spot was chosen for my mesh. It was cleansed appropriately. The mesh was brought into the field. It was tacked to the pubic tubercle with an interrupted 0 Vicryl s titch. It was allowed to lay within the cavity along the inguinal ligament laterally, medially to th e conjoined tendon where it was tacked with a single suture, and the tails were appropriately placed superiorly. The mesh laid without any kinks. Local anesthesia was infiltrated into the pubic tuberc le. The external oblique was then closed with a running 2-0 Vicryl. Local anesthesia was used throu ghout for field block. Noé's was closed with a running 3-0 Vicryl. Skin was closed with Monocryl . Dermabond was placed. The patient was then extubated in the operative suite and taken to the PACU in satisfactory condition. DRAINS: None. COUNTS: All counts were reported as correct x2. /[id number]/MODL
== END 2018-06-23 12:00 | disposition home or self-care (01) ==
LOC: FSGY 07:33
PROVIDERS: ATTEND Surgery
PROC: 0YU50JZ Supplement Right Inguinal Region with Synthetic Substitute, Open Approach (ICD-10-PCS; principal; 2018-06-23 08:45)
DX: K40.90 Unilateral inguinal hernia, without obstruction or gangrene, not specified as recurrent (principal); K21.9 Gastro-esophageal reflux disease without esophagitis; F32.9 Major depressive disorder, single episode, unspecified; I10 Essential (primary) hypertension; G47.33 Obstructive sleep apnea (adult) (pediatric); E55.9 Vitamin D deficiency, unspecified; Z88.0 Allergy status to penicillin
CPT/HCPCS: C1781; J0690; J1100; J2001; J2704; J3010

== ENCOUNTER → 2018-08-24 | Outpatient (CLI) | payer OTHER | LOC: FIMAGING 16:54 | PROVIDERS: ATTEND Family Medicine | DX: M54.9 Dorsalgia, unspecified (principal); M62.838 Other muscle spasm; S22.080A Wedge compression fracture of T11-T12 vertebra, initial encounter for closed fracture; S32.020A Wedge compression fracture of second lumbar vertebra, initial encounter for closed fracture; M81.0 Age-related osteoporosis without current pathological fracture; M51.36 Other intervertebral disc degeneration, lumbar region ==

== ENCOUNTER → 2018-11-03 | Outpatient (CLI) | payer OTHER | LOC: FIMAGING 14:53 | PROVIDERS: ATTEND Family Medicine | DX: E87.1 Hypo-osmolality and hyponatremia (principal); J84.9 Interstitial pulmonary disease, unspecified ==

== ENCOUNTER → 2018-12-14 | Outpatient (CLI) | payer OTHER | LOC: FIMAGING 06:42 | PROVIDERS: ATTEND Family Medicine | DX: L29.9 Pruritus, unspecified (principal); E80.6 Other disorders of bilirubin metabolism; R74.0 Nonspecific elevation of levels of transaminase and lactic acid dehydrogenase [LDH] ==